=== PATIENT | male | born 1950 | race Caucasian/White ===

== ENCOUNTER 2016-10-06 22:35 | Emergency (ER) | payer MEDICARE, BC ==
[2016-10-06] MEDS ORDERED: Glucagon,Human Recombinant 1 MG Vial IVPUSH ONE (23:14)
[2016-10-06] MEDS ORDERED: Ondansetron 4 MG/2 ML SDV IV ONE (23:15)
[2016-10-06] MEDS ORDERED: Famotidine 20 MG/2 ML SDV IVPUSH ONE (23:26)
[2016-10-06 23:50] LABS: CHLORIDE,CL 109 mmol/L (101-111); SODIUM,NA 137 mmol/L (135-145)
[2016-10-07] MEDS ORDERED: fentaNYL 100 MCG/2 ML SDV IVPUSH ONE ×2 (00:07→00:32)
[2016-10-07 00:32] VITALS: BP 129/76
--- NOTE | 2016-10-07 00:51 | EDM.PDOC ---
ED HPI GENERAL MEDICAL PROBLEM - General Chief Complaint: Abdominal Pain Stated Complaint: CHOKING? Time Seen by Provider: 10/06/16 23:10 Source of Information: Reports: Patient History Limitations: Reports: No Limitations - History of Present Illness INITIAL COMMENTS - FREE TEXT/NARRATIVE: c/o abdominal pain after eating steak 4 hours ago, feels like choking , Gagging since. Does not recall feeling like piece of steak stuck. pain in LUQ. states would feel better if could throw up. Onset: Today Location: Reports: Abdomen Associated Symptoms: Reports: Nausea/Vomiting Middle Abdominal Pain Score (Numeric/FACES): 9 - Related Data Allergies Allergy/AdvReac Type Severity Reaction Status Date / Time codeine Allergy Nausea and Verified 10/06/16 23:41 Vomiting Home Meds: Home Meds Pantoprazole Sodium [Protonix] 40 mg PO DAILY 10/15/13 [History] Gemfibrozil [Gemfibrozil] 1 tab PO BID 05/03/14 [History] Metoprolol Succinate 50 mg PO DAILY 08/13/15 [History] Past Medical History HEENT History: Reports: Hard of Hearing Cardiovascular History: Reports: Heart Murmur, High Cholesterol, Hypertension Gastrointestinal History: Reports: GERD Genitourinary History: Reports: Other (See Below) Other Genitourinary History: prostate ca, erectile dysfunction Musculoskeletal History: Reports: Arthritis Psychiatric History: Reports: Anxiety, Panic Attack Endocrine/Metabolic History: Reports: Obesity/BMI 30+ Oncologic (Cancer) History: Reports: Other (See Below) Other Oncologic History: prostate - Past Surgical History GI Surgical History: Reports: Hernia Repair/Other Male Surgical History: Reports: Prostate Biopsy Social & Family History - Tobacco Use Smoking Status *Q: Never Smoker Second Hand Smoke Exposure: No - Caffeine Use Caffeine Use: Reports: Soda - Alcohol Use Days Per Week of Alcohol Use: 7 Number of Drinks Per Day: 4 Total Drinks Per Week: 28 - Recreational Drug Use Recreational Drug Use: No - Living Situation & Occupation Living situation: Reports: , with Family Occupation: Employed ED ROS GENERAL - Review of Systems Review Of Systems: See Below Constitutional: Reports: No Symptoms HEENT: Reports: No Symptoms Respiratory: Reports: Shortness of Breath Cardiovascular: Denies: Chest Pain, Lightheadedness GI/Abdominal: Reports: Abdominal Pain (LUQ), Nausea, Vomiting : Reports: No Symptoms Musculoskeletal: Reports: No Symptoms Skin: Reports: No Symptoms Neurological: Reports: No Symptoms ED EXAM, GI/ABD - Physical Exam Exam: See Below Exam Limited By: No Limitations General Appearance: Alert, Anxious, Moderate Distress Eyes: Bilateral: EOMI Ears: Normal External Exam Nose: Normal Inspection Throat/Mouth: Normal Inspection Head: Atraumatic, Normocephalic Neck: Normal Inspection Respiratory/Chest: No Respiratory Distress, Lungs Clear Cardiovascular: Irregularly Irregular GI/Abdominal: Hypoactive Bowel Sounds, Distention. No: Guarding Extremities: Normal Inspection, Normal Range of Motion Neurological: Alert, Oriented, Normal Cognition Psychiatric: Anxious Skin Exam: Warm, Dry, Intact, Normal Color Course - Vital Signs Last Recorded V/S: Last Vital Signs Temp 98.8 F 10/07/16 00:32 Pulse 128 H 10/07/16 00:32 Resp 16 10/07/16 00:32 BP 129/76 10/07/16 00:32 Pulse Ox 98 10/07/16 00:32 - Orders/Labs/Meds Orders: Active Orders 24 hr Category Date Time Status EKG 12 Lead [EKG Documentation Completion] [RC] URGENT Care 10/06/16 23:25 Active Labs: Laboratory Tests 10/06/16 10/06/16 10/07/16 Range/Units 23:24 23:24 00:30 WBC 9.2 (5.0-10.0) 10^3/uL RBC 4.80 (4.6-6.2) 10^6/uL Hgb 14.7 (14.0-18.0) g/dL Hct 43.4 (40.0-54.0) % MCV 90.4 (80-100) fL MCH 30.6 (27.0-34.0) pg MCHC 33.9 (33.0-35.0) g/dL Plt Count 189 (150-450) 10^3/uL Neut % (Auto) 84.1 H (42.2-75.2) % Lymph % (Auto) 8.7 L (20.5-50.1) % [place] % (Auto) 5.9 (2-8) % Eos % (Auto) 0.8 L (1.0-3.0) % Baso % (Auto) 0.5 (0.0-1.0) % Sodium 137 (135-145) mmol/L Potassium 3.6 (3.6-5.0) mmol/L Chloride 109 (101-111) mmol/L Carbon Dioxide 22.0 (21.0-31.0) mmol/L Anion Gap 9.6 BUN 18 (7-18) mg/dL Creatinine 1.4 H (0.6-1.3) mg/dL Est Cr Clr Drug Dosing 56.97 mL/min Estimated GFR (MDRD) 51 BUN/Creatinine Ratio 12.85 Glucose 119 H (74-105) mg/dL Calcium 9.2 (8.4-10.2) mg/dl Total Bilirubin 0.7 (0.2-1.0) mg/dL AST 30 (10-42) IU/L ALT 28 (10-60) IU/L Alkaline Phosphatase 51 (42-121) IU/L Troponin I < 0.02 (0.00-0.02) ng/ml Total Protein 7.6 (6.7-8.2) g/dl Albumin 4.3 (3.2-5.5) g/dl Globulin 3.3 Albumin/Globulin Ratio 1.30 Amylase 68 (28-100) U/L Lipase 32 (22-51) U/L Urine Color Yellow (YELLOW) Urine Appearance Clear (CLEAR) Urine pH 5.5 (5.0-9.0) Ur Specific [place] 1.025 (1.005-1.030) Urine Protein Negative (NEGATIVE) Urine Glucose (UA) Negative (NEGATIVE) Urine Ketones Negative (NEGATIVE) Urine Occult Blood Negative (NEGATIVE) Urine Nitrite Negative (NEGATIVE) Urine Bilirubin Negative (NEGATIVE) Urine Urobilinogen 0.2 (0.2-1.0) mg/dL Ur Leukocyte Esterase Negative (NEGATIVE) Urine RBC 0-5 /HPF Urine WBC 0-5 (0-5/HPF) /HPF Ur Epithelial Cells Occasional /HPF Urine Bacteria Few (0-FEW/HPF) /HPF Urine Mucus Moderate H /LPF Meds: Medications Discontinued Medications Generic Name Dose Route Start Last Admin Trade Name Freq PRN Reason Stop Dose Admin Famotidine 20 mg 10/06/16 23:26 10/06/16 23:36 Pepcid IVPUSH 10/06/16 23:27 20 mg ONETIME ONE Administration Fentanyl 25 mcg 10/07/16 00:07 10/07/16 00:25 Sublimaze IVPUSH 10/07/16 00:08 25 mcg ONETIME ONE Administration Fentanyl 25 mcg 10/07/16 00:32 10/07/16 01:10 Sublimaze IVPUSH 10/07/16 00:33 25 mcg ONETIME ONE Administration Glucagon 1 mg 10/06/16 23:14 10/06/16 23:32 Glucagen IVPUSH 10/06/16 23:15 1 mg ONETIME ONE Administration Ondansetron HCl 4 mg 10/06/16 23:15 10/06/16 23:31 Zofran IV 10/06/16 23:16 4 mg ONETIME ONE Administration - Re-Assessments/Exams Free Text/Narrative Re-Assessment/Exam: 10/07/16 01:18 Decrease in gagging and vomiting with zofran and glucagon. Pain continued, Fentanyl IV with decrease in pain 4/10 , repeated. TC consult Dr. An accepting of patient in transfer to [facility]. Ct demonstrating possible esophageal tear with trace fluid in posterior mediastinum Tx via LRAS stable condition 10/07/16 05:08 Departure - Departure Time of Disposition: 01:21 Disposition: DC/Tfer to Acute Hospital 02 Condition: undetermined Clinical Impression: Abdominal pain Qualifiers: Abdominal location: left upper quadrant Qualified Code(s): R10.12 - Left upper quadrant pain Esophageal tear Qualifiers: Encounter type: initial encounter Qualified Code(s): S11.21XA - Laceration without foreign body of pharynx and cervical esophagus, initial encounter Vomiting Qualifiers: Vomiting type: unspecified Vomiting Intractability: unspecified Nausea presence : unspecified Qualified Code(s): R11.10 - Vomiting, unspecified - Discharge Information Forms: ED Department Discharge - My Orders Last 24 Hours: My Active Orders 10/06/16 23:25 EKG 12 Lead [EKG Documentation Completion] [RC] URGENT - Assessment/Plan Last 24 Hours: My Active Orders 10/06/16 23:25 EKG 12 Lead [EKG Documentation Completion] [RC] URGENT
--- NOTE | 2016-10-09 14:00 | EKG ---
10/06/2016 LEANDRA MOSES I reviewed the EKG and agree with the machine's reading. [facility] /[id number]
== END 2016-10-07 01:50 ==
LOC: DL.ED 22:35
DX: S11.21XA Laceration without foreign body of pharynx and cervical esophagus, initial encounter (principal); R01.1 Cardiac murmur, unspecified; E78.00 Pure hypercholesterolemia, unspecified; I10 Essential (primary) hypertension; K21.9 Gastro-esophageal reflux disease without esophagitis; M19.90 Unspecified osteoarthritis, unspecified site; F41.9 Anxiety disorder, unspecified; E66.9 Obesity, unspecified; Z88.5 Allergy status to narcotic agent; X58.XXXA Exposure to other specified factors, initial encounter
CPT/HCPCS: 36415; 74176; 80053; 81001; 82150; 83690; 84484; 85025; 93005; 93010; 96374; 96375; 96376; 99285; J1610; J2405; J3010; S0028

== ENCOUNTER 2017-07-03 02:33 | Emergency (ER) | payer MEDICARE, BC ==
[2017-07-03] MEDS ORDERED: Acetaminophen 325 MG Tab PO ONE (02:47)
[2017-07-03 03:24] LABS: CHLORIDE,CL 103 mmol/L (101-111); SODIUM,NA 133 mmol/L (135-145)
--- NOTE | 2017-07-03 03:44 | EDM.PDOC ---
ED HPI GENERAL MEDICAL PROBLEM - General Chief Complaint: General Stated Complaint: HURTS ALL OVER [id number] Time Seen by Provider: 07/03/17 03:00 Source of Information: Reports: Patient History Limitations: Reports: No Limitations - History of Present Illness Treatments BEVERAGE MANAGER: Reports: Acetaminophen Generalized Pain Score (Numeric/FACES): 7 - Related Data Allergies Allergy/AdvReac Type Severity Reaction Status Date / Time codeine Allergy Nausea and Verified 07/03/17 02:43 Vomiting Home Meds: Home Meds Pantoprazole Sodium [Protonix] 40 mg PO DAILY 10/15/13 [History] Gemfibrozil [Gemfibrozil] 1 tab PO BID 05/03/14 [History] Metoprolol Succinate 50 mg PO DAILY 08/13/15 [History] Past Medical History HEENT History: Reports: Hard of Hearing Cardiovascular History: Reports: Heart Murmur, High Cholesterol, Hypertension Gastrointestinal History: Reports: GERD Genitourinary History: Reports: Other (See Below) Other Genitourinary History: prostate ca, erectile dysfunction Musculoskeletal History: Reports: Arthritis Psychiatric History: Reports: Anxiety, Panic Attack Endocrine/Metabolic History: Reports: Obesity/BMI 30+ Oncologic (Cancer) History: Reports: Other (See Below) Other Oncologic History: prostate - Past Surgical History GI Surgical History: Reports: Hernia Repair/Other Male Surgical History: Reports: Prostate Biopsy Social & Family History - Tobacco Use Smoking Status *Q: Never Smoker Second Hand Smoke Exposure: No - Caffeine Use Caffeine Use: Reports: Soda - Alcohol Use Days Per Week of Alcohol Use: 4 Number of Drinks Per Day: 3 Total Drinks Per Week: 12 - Recreational Drug Use Recreational Drug Use: No - Living Situation & Occupation Living situation: Reports: , with Family Occupation: Employed ED ROS GENERAL - Review of Systems Review Of Systems: See Below Constitutional: Reports: Fever, Decreased Appetite HEENT: Reports: No Symptoms Respiratory: Reports: No Symptoms Endocrine: Reports: No Symptoms GI/Abdominal: Reports: No Symptoms Musculoskeletal: Reports: Joint Pain, Muscle Pain Skin: Reports: No Symptoms Neurological: Reports: No Symptoms Psychiatric: Reports: No Symptoms Hematologic/Lymphatic: Reports: No Symptoms ED EXAM, GENERAL - Physical Exam Exam: See Below Exam Limited By: No Limitations General Appearance: Alert, Mild Distress Eye Exam: Bilateral Eye: EOMI Ears: Normal External Exam, Normal TMs Nose: Normal Inspection Throat/Mouth: Normal Inspection Head: Atraumatic, Normocephalic Neck: No: Lymphadenopathy (L), Lymphadenopathy (R) Respiratory/Chest: No Respiratory Distress, Lungs Clear, Other (ocassional dry cough) Cardiovascular: Regular Rate, Rhythm GI/Abdominal: Normal Bowel Sounds, Soft Back Exam: Normal Inspection Extremities: Normal Inspection, Normal Range of Motion Neurological: Alert, Oriented, Normal Cognition Psychiatric: Normal Affect, Normal Mood Skin Exam: Warm, Dry, Intact, Normal Color, No Rash Course - Vital Signs Last Recorded V/S: Last Vital Signs Temp 100.6 F 07/03/17 04:36 Pulse 73 07/03/17 04:36 Resp 16 07/03/17 04:36 BP 98/45 L 07/03/17 04:36 Pulse Ox 98 07/03/17 04:36 - Orders/Labs/Meds Orders: Active Orders 24 hr Category Date Time Status CULTURE BLOOD [BC] Stat Lab 07/03/17 02:55 Received CULTURE BLOOD [BC] Stat Lab 07/03/17 02:58 Received Blood Culture x2 Reflex Set [OM.PC] Stat Oth 07/03/17 02:46 Ordered Labs: Laboratory Tests 07/03/17 07/03/17 07/03/17 Range/Units 02:55 02:55 02:55 WBC 3.8 L (5.0-10.0) 10^3/uL RBC 4.31 L (4.6-6.2) 10^6/uL Hgb 13.1 L D (14.0-18.0) g/dL Hct 38.1 L (40.0-54.0) % MCV 88.4 (80-100) fL MCH 30.4 (27.0-34.0) pg MCHC 34.4 (33.0-35.0) g/dL Plt Count 177 (150-450) 10^3/uL Neut % (Auto) 64.7 (42.2-75.2) % Lymph % (Auto) 24.7 (20.5-50.1) % [place] % (Auto) 9.8 H (2-8) % Eos % (Auto) 0.3 L (1.0-3.0) % Baso % (Auto) 0.5 (0.0-1.0) % Sodium 133 L (135-145) mmol/L Potassium 3.8 (3.6-5.0) mmol/L Chloride 103 (101-111) mmol/L Carbon Dioxide 19.0 L (21.0-31.0) mmol/L Anion Gap 14.8 BUN 12 (7-18) mg/dL Creatinine 1.2 (0.6-1.3) mg/dL Est Cr Clr Drug Dosing 67.51 mL/min Estimated GFR (MDRD) > 60 BUN/Creatinine Ratio 10.00 Glucose 110 H (74-105) mg/dL Lactic Acid 1.5 (0.5-2.2) mmol/L Calcium 8.9 (8.4-10.2) mg/dl Total Bilirubin 0.4 (0.2-1.0) mg/dL AST 40 (10-42) IU/L ALT 31 (10-60) IU/L Alkaline Phosphatase 46 (42-121) IU/L Total Protein 7.5 (6.7-8.2) g/dl Albumin 3.6 (3.2-5.5) g/dl Globulin 3.9 Albumin/Globulin Ratio 0.92 Urine Color (YELLOW) Urine Appearance (CLEAR) Urine pH (5.0-9.0) Ur Specific [place] (1.005-1.030) Urine Protein (NEGATIVE) Urine Glucose (UA) (NEGATIVE) Urine Ketones (NEGATIVE) Urine Occult Blood (NEGATIVE) Urine Nitrite (NEGATIVE) Urine Bilirubin (NEGATIVE) Urine Urobilinogen (0.2-1.0) mg/dL Ur Leukocyte Esterase (NEGATIVE) Urine RBC /HPF Urine WBC (0-5/HPF) /HPF Ur Epithelial Cells /HPF Urine Bacteria (0-FEW/HPF) /HPF Urine Opiates Screen (NEGATIVE) Ur Oxycodone Screen (NEGATIVE) Urine Methadone Screen (NEGATIVE) Ur Barbiturates Screen (NEGATIVE) U Tricyclic Antidepress (NEGATIVE) Ur Phencyclidine Scrn (NEGATIVE) Ur Amphetamine Screen (NEGATIVE) U Methamphetamines Scrn (NEGATIVE) Urine MDMA Screen (NEGATIVE) U Benzodiazepines Scrn (NEGATIVE) Urine Cocaine Screen (NEGATIVE) U Marijuana (THC) Screen (NEGATIVE) 07/03/17 07/03/17 Range/Units 04:14 04:14 WBC (5.0-10.0) 10^3/uL RBC (4.6-6.2) 10^6/uL Hgb (14.0-18.0) g/dL Hct (40.0-54.0) % MCV (80-100) fL MCH (27.0-34.0) pg MCHC (33.0-35.0) g/dL Plt Count (150-450) 10^3/uL Neut % (Auto) (42.2-75.2) % Lymph % (Auto) (20.5-50.1) % [place] % (Auto) (2-8) % Eos % (Auto) (1.0-3.0) % Baso % (Auto) (0.0-1.0) % Sodium (135-145) mmol/L Potassium (3.6-5.0) mmol/L Chloride (101-111) mmol/L Carbon Dioxide (21.0-31.0) mmol/L Anion Gap BUN (7-18) mg/dL Creatinine (0.6-1.3) mg/dL Est Cr Clr Drug Dosing mL/min Estimated GFR (MDRD) BUN/Creatinine Ratio Glucose (74-105) mg/dL Lactic Acid (0.5-2.2) mmol/L Calcium (8.4-10.2) mg/dl Total Bilirubin (0.2-1.0) mg/dL AST (10-42) IU/L ALT (10-60) IU/L Alkaline Phosphatase (42-121) IU/L Total Protein (6.7-8.2) g/dl Albumin (3.2-5.5) g/dl Globulin Albumin/Globulin Ratio Urine Color Yellow (YELLOW) Urine Appearance Clear (CLEAR) Urine pH 5.5 (5.0-9.0) Ur Specific [place] 1.020 (1.005-1.030) Urine Protein Trace H (NEGATIVE) Urine Glucose (UA) Negative (NEGATIVE) Urine Ketones Negative (NEGATIVE) Urine Occult Blood Negative (NEGATIVE) Urine Nitrite Negative (NEGATIVE) Urine Bilirubin Negative (NEGATIVE) Urine Urobilinogen 0.2 (0.2-1.0) mg/dL Ur Leukocyte Esterase Negative (NEGATIVE) Urine RBC 0-5 /HPF Urine WBC 0-5 (0-5/HPF) /HPF Ur Epithelial Cells Occasional /HPF Urine Bacteria Few (0-FEW/HPF) /HPF Urine Opiates Screen Negative (NEGATIVE) Ur Oxycodone Screen Negative (NEGATIVE) Urine Methadone Screen Negative (NEGATIVE) Ur Barbiturates Screen Negative (NEGATIVE) U Tricyclic Antidepress Negative (NEGATIVE) Ur Phencyclidine Scrn Negative (NEGATIVE) Ur Amphetamine Screen Negative (NEGATIVE) U Methamphetamines Scrn Negative (NEGATIVE) Urine MDMA Screen Negative (NEGATIVE) U Benzodiazepines Scrn Negative (NEGATIVE) Urine Cocaine Screen Negative (NEGATIVE) U Marijuana (THC) Screen Negative (NEGATIVE) Meds: Medications Discontinued Medications Generic Name Dose Route Start Last Admin Trade Name Pernell PRN Reason Stop Dose Admin Acetaminophen 650 mg 07/03/17 02:47 07/03/17 02:59 Tylenol PO 07/03/17 02:48 650 mg NOW ONE Administration Sodium Chloride 1,000 mls @ 999 mls/hr 07/03/17 03:45 07/03/17 03:52 Normal Saline IV 07/03/17 04:45 999 mls/hr .BOLUS ONE Administration Ketorolac Tromethamine 30 mg 07/03/17 03:47 07/03/17 03:54 Toradol IVPUSH 07/03/17 03:48 30 mg ONETIME ONE Administration - Radiology Interpretation Free Text/Narrative:: CXR negative Departure - Departure Time of Disposition: 04:40 Disposition: Home, Self-Care 01 Condition: Good Clinical Impression: Myalgia, Acute viral syndrome - Discharge Information Instructions: Nausea, Adult, [id number] Forms: ED Department Discharge Additional Instructions: light diet push fluids alternate tylenol 650mg with ibuprofen 600mg every 4 hours as needed for discomfort rest clinic follow up if not improving in 24 hours - My Orders Last 24 Hours: My Active Orders 07/03/17 02:46 Blood Culture x2 Reflex Set [OM.PC] Stat 07/03/17 02:55 CULTURE BLOOD [BC] Stat 07/03/17 02:58 CULTURE BLOOD [BC] Stat - Assessment/Plan Last 24 Hours: My Active Orders 07/03/17 02:46 Blood Culture x2 Reflex Set [OM.PC] Stat 07/03/17 02:55 CULTURE BLOOD [BC] Stat 07/03/17 02:58 CULTURE BLOOD [BC] Stat
[2017-07-03] MEDS ORDERED: Sodium Chloride 0.9% 1,000 ML IV ONE (03:45)
[2017-07-03] MEDS ORDERED: Ketorolac 30 MG/ML SDV IVPUSH ONE (03:47)
[2017-07-03 04:54] VITALS: BP 127/63
== END 2017-07-03 04:58 | disposition home or self-care (01) ==
LOC: DL.ED 02:33
DX: M79.1 Myalgia (principal); B34.9 Viral infection, unspecified; E78.00 Pure hypercholesterolemia, unspecified; I10 Essential (primary) hypertension; Z88.5 Allergy status to narcotic agent; Z79.899 Other long term (current) drug therapy
CPT/HCPCS: 36415; 71045; 80053; 80305; 81001; 83605; 85025; 87040; 87804; 96374; 96375; 99283; A9270; J1885; J7030

== ENCOUNTER 2017-10-10 04:29 | Emergency (ER) | payer MEDICARE, BC ==
[2017-10-10 04:35] VITALS: BP 159/73
--- NOTE | 2017-10-10 05:11 | EDM.PDOC ---
ED HPI GENERAL MEDICAL PROBLEM - General Chief Complaint: General Stated Complaint: SICK [id number] Time Seen by Provider: 10/10/17 05:00 Source of Information: Reports: Patient History Limitations: Reports: No Limitations - History of Present Illness INITIAL COMMENTS - FREE TEXT/NARRATIVE: Nose bleed approximatley 1 minute that stopped , [place] dizzy after, so came to ER , Feels fine now. Out mowing in dust yesterday. Not on any blood thiner, Denies hx of nose bleeds No recent URI. Generalized Pain Score (Numeric/FACES): 8 - Related Data Allergies Allergy/AdvReac Type Severity Reaction Status Date / Time codeine Allergy Nausea and Verified 10/10/17 04:35 Vomiting Home Meds: Home Meds Pantoprazole Sodium [Protonix] 40 mg PO DAILY 10/15/13 [History] Gemfibrozil 1 tab PO BID 05/03/14 [History] Metoprolol Succinate 50 mg PO DAILY 08/13/15 [History] Past Medical History HEENT History: Reports: Hard of Hearing Cardiovascular History: Reports: Heart Murmur, High Cholesterol, Hypertension Gastrointestinal History: Reports: GERD Genitourinary History: Reports: Other (See Below) Other Genitourinary History: prostate ca, erectile dysfunction Musculoskeletal History: Reports: Arthritis Psychiatric History: Reports: Anxiety, Panic Attack Endocrine/Metabolic History: Reports: Obesity/BMI 30+ Oncologic (Cancer) History: Reports: Prostate Other Oncologic History: prostate - Past Surgical History GI Surgical History: Reports: Hernia Repair/Other Male Surgical History: Reports: Prostate Biopsy Social & Family History - Tobacco Use Smoking Status *Q: Never Smoker Second Hand Smoke Exposure: No - Caffeine Use Caffeine Use: Reports: Soda - Recreational Drug Use Recreational Drug Use: No - Living Situation & Occupation Living situation: Reports: , with Family Occupation: Employed ED ROS GENERAL - Review of Systems Review Of Systems: ROS reveals no pertinent complaints other than HPI. ED EXAM, GENERAL - Physical Exam Exam: See Below Exam Limited By: No Limitations General Appearance: Alert, No Apparent Distress, Anxious Ears: Normal External Exam, Normal TMs Nose: Other (scant dried blood to left anterior nare) Throat/Mouth: Normal Inspection Head: Atraumatic, Normocephalic Neck: Normal Inspection Respiratory/Chest: No Respiratory Distress, Lungs Clear, Normal Breath Sounds Cardiovascular: Normal Peripheral Pulses, Regular Rate, Rhythm GI/Abdominal: Normal Bowel Sounds Extremities: Normal Inspection Neurological: Alert, Oriented, Normal Cognition Psychiatric: Anxious Skin Exam: Warm, Dry, Intact, Normal Color Course - Vital Signs Last Recorded V/S: Last Vital Signs Temp 97.3 F 10/10/17 04:31 Pulse 71 10/10/17 04:31 Resp 18 10/10/17 04:31 BP 159/73 H 10/10/17 04:31 Pulse Ox 99 10/10/17 04:31 Departure - Departure Time of Disposition: 05:08 Disposition: Home, Self-Care 01 Condition: Good Clinical Impression: Anterior epistaxis - Discharge Information Instructions: Nosebleed, Adult, [id number] Forms: ED Department Discharge Additional Instructions: if recurrent nose bleed apply pressure to nasal bridge, follow up if bleeding continues after 5 minutes light activity today humidification at night
== END 2017-10-10 05:12 | disposition home or self-care (01) ==
LOC: DL.ED 04:29
DX: R04.0 Epistaxis (principal); I10 Essential (primary) hypertension; E66.9 Obesity, unspecified; K21.9 Gastro-esophageal reflux disease without esophagitis; Z79.899 Other long term (current) drug therapy; Z88.5 Allergy status to narcotic agent
CPT/HCPCS: 99282; 99283

== ENCOUNTER 2018-09-15 20:15 | Emergency (ER) | payer MEDICARE, BC ==
[2018-09-15] MEDS ORDERED: Acetaminophen 325 MG Tab PO ONE (21:20)
[2018-09-15] MEDS ORDERED: Sodium Chloride 0.9% 1,000 ML IV ONE (21:22)
[2018-09-15] MEDS ORDERED: fentaNYL 100 MCG/2 ML SDV IVPUSH ONE (21:24)
[2018-09-15 21:39] LABS: ANION GAP 13.6; CHLORIDE,CL 101 mmol/L (101-111); SODIUM,NA 131 mmol/L (135-145)
[2018-09-15 22:07] VITALS: BP 131/71; PULSE 73
--- NOTE | 2018-09-15 23:25 | EDM.PDOC ---
"ED HPI GENERAL MEDICAL PROBLEM - General Chief Complaint: General Stated Complaint: PAIN Time Seen by Provider: 09/15/18 20:25 Source of Information: Reports: Patient History Limitations: Reports: No Limitations - History of Present Illness INITIAL COMMENTS - FREE TEXT/NARRATIVE: ED with c/o headache, generalized arthritis, urinary incontinence and diarrhea. Has had diarrhea and urinary symptoms since prostate surgery in 2004. Occasional cough, no nausea or vomiting. No abdominal pain, joints and back hurt. Denies taking anything for pain or fever. Admits daily ETOH Headache same type as previous headaches across top of head. from ear to ear but not had for few years. Headache Pain Score (Numeric/FACES): 6 - Related Data Allergies Allergy/AdvReac Type Severity Reaction Status Date / Time codeine Allergy Nausea and Verified 09/15/18 20:18 Vomiting Home Meds: Home Meds Pantoprazole Sodium [Protonix] 40 mg PO DAILY 10/15/13 [History] Gemfibrozil 1 tab PO BID 05/03/14 [History] Metoprolol Succinate 50 mg PO DAILY 08/13/15 [History] Past Medical History HEENT History: Reports: Hard of Hearing Cardiovascular History: Reports: Heart Murmur, High Cholesterol, Hypertension Gastrointestinal History: Reports: GERD Genitourinary History: Reports: Other (See Below) Other Genitourinary History: prostate ca, erectile dysfunction Musculoskeletal History: Reports: Arthritis Psychiatric History: Reports: Anxiety, Panic Attack Endocrine/Metabolic History: Reports: Obesity/BMI 30+ Oncologic (Cancer) History: Reports: Prostate Other Oncologic History: prostate - Past Surgical History GI Surgical History: Reports: Hernia Repair/Other Male Surgical History: Reports: Prostate Biopsy Social & Family History - Tobacco Use Smoking Status *Q: Never Smoker - Caffeine Use Caffeine Use: Reports: Soda - Alcohol Use Days Per Week of Alcohol Use: 7 Number of Drinks Per Day: 6 Total Drinks Per Week: 42 - Recreational Drug Use Recreational Drug Use: No - Living Situation & Occupation Living situation: Reports: , with Family Occupation: Employed ED ROS GENERAL - Review of Systems Review Of Systems: ROS reveals no pertinent complaints other than HPI. Constitutional: Reports: Fever. Denies: Decreased Appetite HEENT: Reports: Glasses Respiratory: Reports: No Symptoms Cardiovascular: Reports: No Symptoms GI/Abdominal: Reports: No Symptoms : Reports: Incontinence (x1). Denies: Dysuria, Flank Pain, Frequency Musculoskeletal: Reports: Joint Pain (general) Skin: Reports: No Symptoms Neurological: Reports: Headache ED EXAM, GENERAL - Physical Exam Exam: See Below Exam Limited By: No Limitations General Appearance: Alert, Anxious, Mild Distress Eye Exam: Bilateral Eye: EOMI, Normal Inspection, PERRL Ears: Normal External Exam, Normal TMs Nose: Normal Inspection Throat/Mouth: Normal Inspection Head: Atraumatic, Normocephalic Neck: Normal Inspection, Full Range of Motion Respiratory/Chest: No Respiratory Distress, Lungs Clear, Other (rare dry cough) Cardiovascular: Normal Peripheral Pulses, Regular Rate, Rhythm GI/Abdominal: Normal Bowel Sounds, Soft Back Exam: Full Range of Motion Extremities: Normal Inspection Neurological: Alert, Oriented, Normal Cognition, No Motor/Sensory Deficits Psychiatric: Anxious Skin Exam: Warm, Dry, Intact, Normal Color Course - Vital Signs Last Recorded V/S: Last Vital Signs Temp 98.6 F 09/15/18 22:52 Pulse 73 09/15/18 22:06 Resp 16 09/15/18 22:06 BP 131/71 09/15/18 22:06 Pulse Ox 97 09/15/18 22:06 - Orders/Labs/Meds Labs: Laboratory Tests 09/15/18 09/15/18 09/15/18 Range/Units 20:17 20:55 20:55 WBC 4.2 L (5.0-10.0) 10^3/uL RBC 4.48 L (4.6-6.2) 10^6/uL Hgb 14.2 (14.0-18.0) g/dL Hct 40.0 (40.0-54.0) % MCV 89.3 (80-100) fL MCH 31.7 (27.0-34.0) pg MCHC 35.5 H (33.0-35.0) g/dL Plt Count 151 (150-450) 10^3/uL Neut % (Auto) 67.6 (42.2-75.2) % Lymph % (Auto) 21.8 (20.5-50.1) % [place] % (Auto) 9.2 H (2-8) % Eos % (Auto) 0.9 L (1.0-3.0) % Baso % (Auto) 0.5 (0.0-1.0) % Sodium 131 L (135-145) mmol/L Potassium 3.6 (3.6-5.0) mmol/L Chloride 101 (101-111) mmol/L Carbon Dioxide 20.0 L (21.0-31.0) mmol/L Anion Gap 13.6 BUN 12 (7-18) mg/dL Creatinine 1.3 (0.6-1.3) mg/dL Est Cr Clr Drug Dosing 59.69 mL/min Estimated GFR (MDRD) 55 BUN/Creatinine Ratio 9.23 Glucose 115 H (74-105) mg/dL Lactic Acid (0.5-2.2) mmol/L Calcium 8.3 L (8.4-10.2) mg/dl Total Bilirubin 1.0 (0.2-1.0) mg/dL AST 23 (10-42) IU/L ALT 16 (10-60) IU/L Alkaline Phosphatase 54 (42-121) IU/L C-Reactive Protein (0.0-1.3) mg/dL Total Protein 7.1 (6.7-8.2) g/dl Albumin 3.3 (3.2-5.5) g/dl Globulin 3.8 Albumin/Globulin Ratio 0.87 Urine Color Yellow (YELLOW) Urine Appearance Clear (CLEAR) Urine pH 7.5 (5.0-9.0) Ur Specific [place] 1.020 (1.005-1.030) Urine Protein 30 H (NEGATIVE) Urine Glucose (UA) Negative (NEGATIVE) Urine Ketones Trace H (NEGATIVE) Urine Occult Blood Negative (NEGATIVE) Urine Nitrite Negative (NEGATIVE) Urine Bilirubin Negative (NEGATIVE) Urine Urobilinogen 1.0 (0.2-1.0) mg/dL Ur Leukocyte Esterase Negative (NEGATIVE) Urine RBC 0-5 /HPF Urine WBC 0-5 (0-5/HPF) /HPF Ur Epithelial Cells Rare /HPF Urine Bacteria Not seen (0-FEW/HPF) /HPF Ethyl Alcohol < 5 mg/dL 09/15/18 09/15/18 Range/Units 20:55 20:55 WBC (5.0-10.0) 10^3/uL RBC (4.6-6.2) 10^6/uL Hgb (14.0-18.0) g/dL Hct (40.0-54.0) % MCV (80-100) fL MCH (27.0-34.0) pg MCHC (33.0-35.0) g/dL Plt Count (150-450) 10^3/uL Neut % (Auto) (42.2-75.2) % Lymph % (Auto) (20.5-50.1) % [place] % (Auto) (2-8) % Eos % (Auto) (1.0-3.0) % Baso % (Auto) (0.0-1.0) % Sodium (135-145) mmol/L Potassium (3.6-5.0) mmol/L Chloride (101-111) mmol/L Carbon Dioxide (21.0-31.0) mmol/L Anion Gap BUN (7-18) mg/dL Creatinine (0.6-1.3) mg/dL Est Cr Clr Drug Dosing mL/min Estimated GFR (MDRD) BUN/Creatinine Ratio Glucose (74-105) mg/dL Lactic Acid 1.1 (0.5-2.2) mmol/L Calcium (8.4-10.2) mg/dl Total Bilirubin (0.2-1.0) mg/dL AST (10-42) IU/L ALT (10-60) IU/L Alkaline Phosphatase (42-121) IU/L C-Reactive Protein 3.4 H (0.0-1.3) mg/dL Total Protein (6.7-8.2) g/dl Albumin (3.2-5.5) g/dl Globulin Albumin/Globulin Ratio Urine Color (YELLOW) Urine Appearance (CLEAR) Urine pH (5.0-9.0) Ur Specific [place] (1.005-1.030) Urine Protein (NEGATIVE) Urine Glucose (UA) (NEGATIVE) Urine Ketones (NEGATIVE) Urine Occult Blood (NEGATIVE) Urine Nitrite (NEGATIVE) Urine Bilirubin (NEGATIVE) Urine Urobilinogen (0.2-1.0) mg/dL Ur Leukocyte Esterase (NEGATIVE) Urine RBC /HPF Urine WBC (0-5/HPF) /HPF Ur Epithelial Cells /HPF Urine Bacteria (0-FEW/HPF) /HPF Ethyl Alcohol mg/dL Meds: Medications Discontinued Medications Generic Name Dose Route Start Last Admin Trade Name Freq PRN Reason Stop Dose Admin Acetaminophen 650 mg 09/15/18 21:20 09/15/18 21:25 Tylenol PO 09/15/18 21:21 650 mg NOW ONE Administration Fentanyl 25 mcg 09/15/18 21:24 09/15/18 21:50 Sublimaze IVPUSH 09/15/18 21:25 25 mcg ONETIME ONE Administration Sodium Chloride 1,000 mls @ 250 mls/hr 09/15/18 21:22 09/15/18 21:47 Normal Saline IV 09/16/18 01:21 250 mls/hr .BOLUS ONE Administration - Radiology Interpretation Free Text/Narrative:: Name: LEANDRA ERNST Age: 68Years M Date: 09/15/2018 SSN: -- : 1950 Study: XR CHEST 2 VIEWS FRONTAL & LAT Requesting Physician: MARLENY GORE Images: 2 Addl Studies: Provided Clinical History: Contrast: Contrast Medium: Contrast Amount: Contrast Method: CONFIDENTIALITY STATEMENT This report is intended only for use by the referring physician, and only in accordance with law. If you received this in error, call [phone]. Page 1 of 1 EXAM: XR Chest, 2 Views EXAM DATE/TIME: 09/15/2018 10:32 PM CLINICAL HISTORY: 68 years old, male; Fever. TECHNIQUE: Imaging protocol: XR of the chest, 2 views. COMPARISON: CR Chest 1V Frontal 07/03/2017 3:22 AM FINDINGS: Lungs are clear. No evidence of pneumothorax or pleural effusion. Cardiomediastinal silhouette is within normal limits. Osseous structures appear intact. No significant change relative to comparison examination. IMPRESSION: No acute disease. Thank you for allowing us to participate in the care of your patient. Dictated and Authenticated by: Nick Sandra MD 09/15/2018 11:01 PM Central Time ([place] & [place] Name: LEANDRA ERNST Age: 68Years M Date: 09/15/2018 SSN: -- : 1950 Study: CT HEAD WO Requesting Physician: MARLENY GORE Images: 153 Addl Studies: Provided Clinical History: Contrast: Without Contrast Medium: Contrast Amount: Contrast Method: Page 1 of 2 EXAM: CT Head Without Contrast EXAM DATE/TIME: 09/15/2018 9:00 PM CLINICAL HISTORY: 68 years old, male; Bilateral temporal partietal headache. TECHNIQUE: Imaging protocol: Axial computed tomography images of the head/brain without contrast. Coronal and sagittal reformatted images were created and reviewed. Radiation optimization: All CT scans at this facility use at least one of these dose optimization techniques: automated exposure control; mA and/or kV adjustment per patient size (includes targeted exams where dose is matched to clinical indication); or iterative reconstruction. COMPARISON: No relevant prior studies available. FINDINGS: Brain is unremarkable. No evidence of intracranial hemorrhage, mass effect, hydrocephalus, or significant extra-axial collection. Extracranial soft tissues are unremarkable. Osseous structures are intact. Visualized paranasal sinuses and mastoid air cells are clear. IMPRESSION: No acute intracranial findings. Thank you for allowing us to participate in the care of your patient. LEANDRA ERNST | Final Radiology Report CONFIDENTIALITY STATEMENT This report is intended only for use by the referring physician, and only in accordance with law. If you received this in error, call [phone]. Page 2 of 2 Dictated and Authenticated by: Nick Sandra MD 09/15/2018 9:13 PM Central Time ([place] & [place]) Departure - Departure Time of Disposition: 23:21 Disposition: Home, Self-Care 01 Condition: Good Clinical Impression: Headache Qualifiers: Headache type: unspecified Headache chronicity pattern: episodic headache Intractability: not intractable Qualified Code(s): R51 - Headache Fever Qualifiers: Fever type: unspecified Qualified Code(s): R50.9 - Fever, unspecified - Discharge Information *PRESCRIPTION DRUG MONITORING PROGRAM REVIEWED*: No Instructions: Fever, Adult Referrals: Julissa Garza PA [Primary Care Provider] - Forms: ED Department Discharge Additional Instructions: increase fluid intake alternate tylenol and ibuprofen for fever follow up if symptoms worsen"
== END 2018-09-15 23:36 | disposition home or self-care (01) ==
LOC: DL.ED 20:15
DX: R51 Headache (principal); R50.9 Fever, unspecified; E78.00 Pure hypercholesterolemia, unspecified; I10 Essential (primary) hypertension; K21.9 Gastro-esophageal reflux disease without esophagitis; Z88.5 Allergy status to narcotic agent; Z79.899 Other long term (current) drug therapy
CPT/HCPCS: 36415; 70450; 71046; 80053; 81001; 83605; 85025; 86140; 87804; 96361; 96374; 99283; 99284; A9270; G0480; J3010; J7030

== ENCOUNTER 2018-09-22 01:12 | Emergency (ER) | payer MEDICARE, BC ==
[2018-09-22] MEDS ORDERED: Ketorolac 30 MG/ML SDV IVPUSH ONE (01:30)
[2018-09-22] MEDS ORDERED: Sodium Chloride 0.9% 1,000 ML IV ONE (01:30)
--- NOTE | 2018-09-22 01:36 | EDM.PDOC ---
ED HPI GENERAL MEDICAL PROBLEM - General Chief Complaint: Back Pain or Injury Stated Complaint: PAIN [id number] Time Seen by Provider: 09/22/18 01:31 Source of Information: Reports: Patient History Limitations: Reports: No Limitations - History of Present Illness INITIAL COMMENTS - FREE TEXT/NARRATIVE: onset left back pain 3pm while sitting in couch, denies straining, also having problem urinating, feels like has to but unable. has h/o prostate cancer 2004 and was Tx with seeds. Treatments CLINICAL NUTRITION MANAGER: Reports: Acetaminophen Left Middle Back Pain Score (Numeric/FACES): 8 Left Lower Back Pain Score (Numeric/FACES): 8 - Related Data Allergies Allergy/AdvReac Type Severity Reaction Status Date / Time codeine Allergy Nausea and Verified 09/22/18 01:19 Vomiting Home Meds: Home Meds Pantoprazole Sodium [Protonix] 40 mg PO DAILY 10/15/13 [History] Gemfibrozil 1 tab PO BID 05/03/14 [History] Metoprolol Succinate 50 mg PO DAILY 08/13/15 [History] Past Medical History HEENT History: Reports: Hard of Hearing Cardiovascular History: Reports: Heart Murmur, High Cholesterol, Hypertension Gastrointestinal History: Reports: GERD Genitourinary History: Reports: Other (See Below) Other Genitourinary History: prostate ca, erectile dysfunction Musculoskeletal History: Reports: Arthritis Psychiatric History: Reports: Anxiety, Panic Attack Endocrine/Metabolic History: Reports: Obesity/BMI 30+ Oncologic (Cancer) History: Reports: Prostate Other Oncologic History: prostate - Past Surgical History GI Surgical History: Reports: Hernia Repair/Other Male Surgical History: Reports: Prostate Biopsy Social & Family History - Tobacco Use Smoking Status *Q: Unknown Ever Smoked - Caffeine Use Caffeine Use: Reports: Soda - Alcohol Use Days Per Week of Alcohol Use: 7 Number of Drinks Per Day: 4 Total Drinks Per Week: 28 - Recreational Drug Use Recreational Drug Use: No - Living Situation & Occupation Living situation: Reports: , with Family Occupation: Employed ED ROS GENERAL - Review of Systems Review Of Systems: ROS reveals no pertinent complaints other than HPI. ED EXAM,LOWER BACK PAIN/INJURY - Physical Exam Exam: See Below Exam Limited By: No Limitations General Appearance: Alert, WD/WN, Other (episodic distress with back pain) Ears: Hearing Grossly Normal Throat/Mouth: Normal Voice, No Airway Compromise Head: Atraumatic Neck: Non-Tender, Full Range of Motion Respiratory/Chest: No Respiratory Distress Cardiovascular: Regular Rate, Rhythm GI/Abdominal: Soft, Non-Tender Back Exam: CVA Tenderness (L) Neurological: Alert, Normal Mood/Affect, Normal Dorsiflexion, No Motor/Sensory Deficits, Oriented x 3 Psychiatric: Flat Affect Skin Exam: Warm, Dry, Normal Color Lymphatic: No Adenopathy Course - Vital Signs Text/Narrative:: discussed with pt who is feeling much s/p toradol Last Recorded V/S: Last Vital Signs Temp 37.1 C 09/22/18 02:44 Pulse 89 09/22/18 02:44 Resp 19 09/22/18 02:44 BP 154/89 H 09/22/18 02:44 Pulse Ox 100 09/22/18 02:44 - Orders/Labs/Meds Orders: Active Orders 24 hr Category Date Time Status Abdomen Pelvis wo Cont [CT] Urgent Exams 09/22/18 02:50 Taken Labs: Laboratory Tests 09/22/18 09/22/18 09/22/18 Range/Units 01:44 01:44 02:35 WBC 4.9 L (5.0-10.0) 10^3/uL RBC 4.61 (4.6-6.2) 10^6/uL Hgb 14.3 (14.0-18.0) g/dL Hct 41.2 (40.0-54.0) % MCV 89.4 (80-100) fL MCH 31.0 (27.0-34.0) pg MCHC 34.7 (33.0-35.0) g/dL Plt Count 200 (150-450) 10^3/uL Neut % (Auto) 71.8 (42.2-75.2) % Lymph % (Auto) 17.7 L (20.5-50.1) % [place] % (Auto) 8.7 H (2-8) % Eos % (Auto) 0.8 L (1.0-3.0) % Baso % (Auto) 1.0 (0.0-1.0) % Sodium 133 L (135-145) mmol/L Potassium 3.3 L (3.6-5.0) mmol/L Chloride 102 (101-111) mmol/L Carbon Dioxide 20.0 L (21.0-31.0) mmol/L Anion Gap 14.3 BUN 10 (7-18) mg/dL Creatinine 1.1 (0.6-1.3) mg/dL Est Cr Clr Drug Dosing 70.55 mL/min Estimated GFR (MDRD) > 60 BUN/Creatinine Ratio 9.09 Glucose 137 H (74-105) mg/dL Calcium 8.3 L (8.4-10.2) mg/dl Total Bilirubin 0.6 (0.2-1.0) mg/dL AST 28 (10-42) IU/L ALT 17 (10-60) IU/L Alkaline Phosphatase 61 (42-121) IU/L Total Protein 7.3 (6.7-8.2) g/dl Albumin 3.2 (3.2-5.5) g/dl Globulin 4.1 Albumin/Globulin Ratio 0.78 Urine Color Dark yellow (YELLOW) Urine Appearance Slightly cloudy (CLEAR) Urine pH 5.5 (5.0-9.0) Ur Specific [place] >= 1.030 (1.005-1.030) Urine Protein 30 H (NEGATIVE) Urine Glucose (UA) Negative (NEGATIVE) Urine Ketones Trace H (NEGATIVE) Urine Occult Blood Negative (NEGATIVE) Urine Nitrite Negative (NEGATIVE) Urine Bilirubin Small H (NEGATIVE) Urine Urobilinogen 4.0 H (0.2-1.0) mg/dL Ur Leukocyte Esterase Negative (NEGATIVE) Urine RBC 0-5 /HPF Urine WBC 0-5 (0-5/HPF) /HPF Ur Epithelial Cells Few /HPF Urine Bacteria Moderate H (0-FEW/HPF) /HPF Urine Mucus Many H /LPF Meds: Medications Discontinued Medications Generic Name Dose Route Start Last Admin Trade Name Freq PRN Reason Stop Dose Admin Sodium Chloride 1,000 mls @ 999 mls/hr 09/22/18 01:30 09/22/18 01:49 Normal Saline IV 09/22/18 02:30 999 mls/hr .BOLUS ONE Administration Ketorolac Tromethamine 30 mg 09/22/18 01:30 09/22/18 01:49 Toradol IVPUSH 09/22/18 01:31 30 mg ONETIME ONE Administration Departure - Departure Time of Disposition: 03:52 Disposition: Home, Self-Care 01 Condition: Good Clinical Impression: Back spasm - Discharge Information Instructions: Muscle Cramps and Spasms, [id number] Forms: ED Department Discharge Additional Instructions: 1) try heat to sore areas 2) take tylenol or motrin for pain 3) recheck as needed rx given; flexeril 10mg bid prn x 6 - My Orders Last 24 Hours: My Active Orders 09/22/18 02:50 Abdomen Pelvis wo Cont [CT] Urgent - Assessment/Plan Last 24 Hours: My Active Orders 09/22/18 02:50 Abdomen Pelvis wo Cont [CT] Urgent
[2018-09-22 02:09] LABS: ANION GAP 14.3; CHLORIDE,CL 102 mmol/L (101-111); SODIUM,NA 133 mmol/L (135-145)
[2018-09-22 04:01] VITALS: BP 143/75
== END 2018-09-22 03:57 | disposition home or self-care (01) ==
LOC: DL.ED 01:12
DX: M62.830 Muscle spasm of back (principal); E78.00 Pure hypercholesterolemia, unspecified; I10 Essential (primary) hypertension; K21.9 Gastro-esophageal reflux disease without esophagitis; Z88.5 Allergy status to narcotic agent; Z79.899 Other long term (current) drug therapy
CPT/HCPCS: 36415; 74176; 80053; 81001; 85025; 96361; 96374; 99284; J1885; J7030

== ENCOUNTER → 2018-10-30 | Outpatient (CLI) | payer MEDICARE, BC ==
[~2018-10-30] MED LIST: Barium Sulfate w/v 2.1% Oral Susp 450 ML Bottle PO ONE; Iopamidol 612 MG/ML 100 ML Bottle IVPUSH ONE
== END ==
LOC: DL.CT 07:52
PROVIDERS: ATTEND Internal Medicine Gastroenterology
DX: R10.31 Right lower quadrant pain (principal); K57.30 Diverticulosis of large intestine without perforation or abscess without bleeding; K22.8 Other specified diseases of esophagus; R93.2 Abnormal findings on diagnostic imaging of liver and biliary tract
CPT/HCPCS: 74177; Q9967

== ENCOUNTER 2021-05-15 12:19 | Emergency (ER) | payer MEDICARE, BC ==
[2021-05-15 12:35] VITALS: BP 153/88
--- NOTE | 2021-05-15 12:46 | EDM.PDOC ---
ED HPI GENERAL MEDICAL PROBLEM - General Chief Complaint: Respiratory Problem Stated Complaint: CHEST PAIN Time Seen by Provider: 05/15/21 12:42 Source of Information: Reports: Patient, Provider (ALLA Costa from [facility]), RN, RN Notes Reviewed History Limitations: Reports: No Limitations - History of Present Illness INITIAL COMMENTS - FREE TEXT/NARRATIVE: Favian is a 71 y/o male who presents to the ED at the request of his PCP from [facility] due to shortness of breath and chest pressure. The patient reports his symptoms began one week ago and have maintained in severity over that time. Additionally, he reports transient dizziness, dry cough, epigastric pain, nausea, and diarrhea. The patient was tested for COVID and Influenza A/B at the clinic, both were negative. He denies fever, shaking chills, vision changes, sore throat, chest pain, vomiting, dysuria, hematuria, melena, or hematochezia. He denies a decrease in his appetite or fluid intake. The patient attests to drinking 5-6 large beers six days a week; he denies tobacco or recreational drug use. The patient received full doses of the [employer] COVID-19 vaccine. Generalized Pain Score (Numeric/FACES): 4 - Related Data Allergies Allergy/AdvReac Type Severity Reaction Status Date / Time codeine Allergy Nausea and Verified 05/15/21 12:35 Vomiting Home Meds: Home Meds Pantoprazole Sodium [Protonix] 40 mg PO BIDAC 10/15/13 [History] Metoprolol Succinate 50 mg PO DAILY 08/13/15 [History] Albuterol [Ventolin HFA] 2 inh INH Q4HR 12/15/18 [History] Flecainide [Tambocor] 100 mg PO BID 12/15/18 [History] Past Medical History HEENT History: Reports: Hard of Hearing Cardiovascular History: Reports: Heart Murmur, High Cholesterol, Hypertension Respiratory History: Reports: None Gastrointestinal History: Reports: GERD Genitourinary History: Reports: Other (See Below) Other Genitourinary History: prostate ca, erectile dysfunction Musculoskeletal History: Reports: Arthritis Neurological History: Reports: None Psychiatric History: Reports: Anxiety, Panic Attack Endocrine/Metabolic History: Reports: Obesity/BMI 30+ Hematologic History: Reports: None Immunologic History: Reports: None Oncologic (Cancer) History: Reports: Prostate Other Oncologic History: prostate Dermatologic History: Reports: None - Infectious Disease History Infectious Disease History: Reports: Chicken Pox, Measles, Mumps - Past Surgical History Head Surgeries/Procedures: Reports: None GI Surgical History: Reports: Hernia Repair/Other Male Surgical History: Reports: Prostate Biopsy Social & Family History - Tobacco Use Tobacco Use Status *Q: Never Tobacco User Second Hand Smoke Exposure: No - Caffeine Use Caffeine Use: Reports: Soda - Recreational Drug Use Recreational Drug Use: No - Living Situation & Occupation Living situation: Reports: , with Family Occupation: Employed ED ROS GENERAL - Review of Systems Review Of Systems: Comprehensive ROS is negative, except as noted in HPI. ED EXAM, GENERAL - Physical Exam Exam: See Below Exam Limited By: No Limitations General Appearance: Alert, No Apparent Distress, Other Eye Exam: Bilateral Eye: EOMI, Normal Inspection, PERRL (3mm) Ear Exam: Right Ear: Canal Normal (Cerumen impaction), Left Ear: TM Dull (Serous fluid to TM) Nose: Normal Inspection, Normal Mucosa, No Blood Throat/Mouth: Normal Voice, No Airway Compromise. No: Normal Oropharynx (Dry mucous membranes) Head: Atraumatic, Normocephalic Neck: Normal Inspection, Supple, Non-Tender, Full Range of Motion. No: Lymphadenopathy (L), Lymphadenopathy (R) Respiratory/Chest: No Respiratory Distress, No Accessory Muscle Use, Chest Non- Tender, Rales (To right upper and mid lobes). No: Crackles, Rhonchi, Wheezing, Stridor Cardiovascular: Normal Peripheral Pulses, Regular Rate, Rhythm, No Edema, No Gallop, No JVD, No Murmur, No Rub Peripheral Pulses: 2+: Radial (L), Radial (R) GI/Abdominal: No Distention, No Abnormal Bruit, No Mass, Pelvis Stable, Tender (To midepigastric region), Abnormal Bowel Sounds (Hyperactive ) (Male) Exam: Deferred Rectal (Males) Exam: Deferred Back Exam: Normal Inspection, Full Range of Motion Extremities: Normal Inspection, Normal Range of Motion, Non-Tender, No Pedal Edema, Normal Capillary Refill Neurological: Alert, Oriented, CN II-XII Intact, Normal Cognition, Normal Gait, No Motor/Sensory Deficits Psychiatric: Normal Affect, Normal Mood Skin Exam: Warm, Dry, Intact, Normal Color, No Rash. No: Cyanosis, Jaundice, Mottled, Pallor Lymphatic: No Adenopathy #1 Interpretation EKG Date: 05/15/21 Time: 12:33 Rhythm: Other (Sinus rhythm with 1st degree AVB) Rate (Beats/Min): 70 [place]: LAD-Left [place] Deviation P-Wave: Present QRS: Normal ST-T: Normal QT: Prolonged (0.562) IN/PQ Interval: 0.239 Comparison: Change From Previous EKG (10-06-16) EKG Interpretation Comments: SR with 1st Degree AVB; LAD; Q-wave in III; No evidence of acute myocardial ischemia Course - Vital Signs Last Recorded V/S: Last Vital Signs Temp 97.6 F 05/15/21 12:27 Pulse 72 05/15/21 14:34 Resp 20 05/15/21 12:27 BP 153/88 H 05/15/21 12:27 Pulse Ox 98 05/15/21 12:27 - Orders/Labs/Meds Labs: Laboratory Tests 05/15/21 05/15/21 05/15/21 Range/Units 12:53 12:53 12:53 WBC 6.0 (5.0-10.0) 10^3/uL RBC 4.95 (4.6-6.2) 10^6/uL Hgb 15.1 (14.0-18.0) g/dL Hct 43.3 (40.0-54.0) % MCV 87.5 (80-100) fL MCH 30.5 (27.0-34.0) pg MCHC 34.9 (33.0-35.0) g/dL Plt Count 151 (150-450) 10^3/uL Neut % (Auto) 69.6 (42.2-75.2) % Lymph % (Auto) 21.2 (20.5-50.1) % Davis % (Auto) 8.8 H (2-8) % Eos % (Auto) 0.2 L (1.0-3.0) % Baso % (Auto) 0.2 (0.0-1.0) % PT 10.4 (9.0-12.0) SEC INR 1.0 (0.9-1.2) APTT 29.8 (22.0-34.0) SEC Sodium 136 (136-145) mmol/L Potassium 3.6 (3.5-5.1) mmol/L Chloride 99 (98-107) mmol/L Carbon Dioxide 22 (21-32) mmol/L Anion Gap 18.6 H (7-13) mEq/L BUN 24 H (7-18) mg/dL Creatinine 1.44 H (0.70-1.30) mg/dL Est Cr Clr Drug Dosing 51.64 mL/min Estimated GFR (MDRD) 48 BUN/Creatinine Ratio 16.7 (No establ ref range) Glucose 113 H (70-99) mg/dL Lactic Acid (0.4-2.0) mmol/L Calcium 8.6 (8.5-10.1) mg/dL Magnesium 2.5 H (1.8-2.4) mg/dL Total Bilirubin 1.1 H (0.2-1.0) mg/dL AST 27 (15-37) U/L ALT 41 (16-63) U/L Alkaline Phosphatase 67 (46-116) U/L Ammonia (11-32) umol/L Troponin I High Sens 18 (<=76) pg/mL C-Reactive Protein 3.4 H (0.0-0.9) mg/dL B-Natriuretic Peptide 22 (0-100) pg/ml Total Protein 8.0 (6.4-8.2) g/dL Albumin 3.4 (3.4-5.0) g/dL Globulin 4.6 Albumin/Globulin Ratio 0.7 Amylase 37 (25-115) U/L Lipase 143 (73-393) U/L Ethyl Alcohol < 3 (0) mg/dL 05/15/21 05/15/21 Range/Units 12:53 12:53 WBC (5.0-10.0) 10^3/uL RBC (4.6-6.2) 10^6/uL Hgb (14.0-18.0) g/dL Hct (40.0-54.0) % MCV (80-100) fL MCH (27.0-34.0) pg MCHC (33.0-35.0) g/dL Plt Count (150-450) 10^3/uL Neut % (Auto) (42.2-75.2) % Lymph % (Auto) (20.5-50.1) % Davis % (Auto) (2-8) % Eos % (Auto) (1.0-3.0) % Baso % (Auto) (0.0-1.0) % PT (9.0-12.0) SEC INR (0.9-1.2) APTT (22.0-34.0) SEC Sodium (136-145) mmol/L Potassium (3.5-5.1) mmol/L Chloride (98-107) mmol/L Carbon Dioxide (21-32) mmol/L Anion Gap (7-13) mEq/L BUN (7-18) mg/dL Creatinine (0.70-1.30) mg/dL Est Cr Clr Drug Dosing mL/min Estimated GFR (MDRD) BUN/Creatinine Ratio (No establ ref range) Glucose (70-99) mg/dL Lactic Acid 1.5 (0.4-2.0) mmol/L Calcium (8.5-10.1) mg/dL Magnesium (1.8-2.4) mg/dL Total Bilirubin (0.2-1.0) mg/dL AST (15-37) U/L ALT (16-63) U/L Alkaline Phosphatase (46-116) U/L Ammonia < 10 L (11-32) umol/L Troponin I High Sens (<=76) pg/mL C-Reactive Protein (0.0-0.9) mg/dL B-Natriuretic Peptide (0-100) pg/ml Total Protein (6.4-8.2) g/dL Albumin (3.4-5.0) g/dL Globulin Albumin/Globulin Ratio Amylase (25-115) U/L Lipase (73-393) U/L Ethyl Alcohol (0) mg/dL Meds: Medications Discontinued Medications Generic Name Dose Route Start Last Admin Trade Name Freq PRN Reason Stop Dose Admin Albuterol/Ipratropium 3 ml 05/15/21 14:18 05/15/21 14:35 Albuterol/Ipratropium 3.0-0.5 Mg/3 Ml Neb Soln NEB 05/15/21 14:19 3 ml ONETIME ONE Administration Methylprednisolone Sodium Succinate 125 mg 05/15/21 14:59 05/15/21 15:17 Methylprednisolone Sodium Succinate 125 Mg/2 Ml Sdv IVPUSH 05/15/21 15:00 125 mg ONETIME ONE Administration - Re-Assessments/Exams Free Text/Narrative Re-Assessment/Exam: 05/15/21 DuoNeb administered. CXR and EGK performed while labs pending. Patient verbalized mild improvement in shortness of breath following nebulizer. Will administer Solu-Medrol 125mg IVP. Findings of examination, lab work, and imaging reviewed with patient. Will treat acute asthma exacerbation with prednisone burst and albuterol MDI. Supportive cares discussed. Patient instructed to follow up with primary care provider in 3-5 days regarding todays visit. Red flag signs and symptoms which would warrant immediate reevaluation reviewed. Patient verbalized understanding and agreement with the plan of care. Departure - Departure Time of Disposition: 15:01 Disposition: Home, Self-Care 01 Condition: Fair Clinical Impression: Exacerbation of asthma Qualifiers: Asthma severity: mild Asthma persistence: persistent Qualified Code(s): J45.31 - Mild persistent asthma with (acute) exacerbation - Discharge Information *PRESCRIPTION DRUG MONITORING PROGRAM REVIEWED*: Not Applicable *COPY OF PRESCRIPTION DRUG MONITORING REPORT IN PATIENT ERICA: Not Applicable Instructions: Asthma, Adult Forms: ED Department Discharge Additional Instructions: Rx: albuterol MDI (#1) Rx: prednisone 20mg (#10) 1.) Start your prednisone tomorrow as you received a dose in the emergency department today. 2.) Use your albuterol inhaler in conjunction with your daily inhaler. 3.) Follow up with your primary care provider in 3-5 days regarding today's visit. 4.) You may take Imodium, per manufacturers instructions, for diarrhea. 5.) Drink small, frequent sips of water/fluids to stay hydrated. 6.) Reduce your alcohol intake. Sepsis Event Note (ED) - Evaluation Sepsis Screening Result: No Definite Risk - Focused Exam Vital Signs: Vital Signs Temp Pulse Resp BP Pulse Ox 05/15/21 14:34 72 05/15/21 12:27 97.6 F 69 20 153/88 H 98
[2021-05-15 13:22] LABS: ANION GAP 18.6 mEq/L (7-13); CHLORIDE,CL 99 mmol/L (98-107); SODIUM,NA 136 mmol/L (136-145)
[2021-05-15 13:37] LABS: PTT,PARTIAL THROMBOPLSTIN TIME 29.8 SEC (22.0-34.0)
--- NOTE | 2021-05-15 13:48 | CR ---
EXAMINATION: Chest 1V Frontal SEX: Male AGE: 71 years CLINICAL HISTORY: 71-year-old obese male with chest pain. Comparison CXR 15 September 2018. Interpretation: 1. Normal cardiac silhouette (size and configuration). Left-sided aortic arch. 2. No pulmonary vascular congestion, cephalization of flow, alveolar edema or dependent new pleural fluid accumulation. 3. No new lung mass or hilar/mediastinal lymphadenopathy (normal midline tracheal bronchial airway). 4. No suspicious lung nodules or malignant appearing mass lesion. No hilar or mediastinal lymphadenopathy. 5. No alveolar consolidation (atelectasis/infiltrate), air bronchograms, peripheral "groundglass" interstitial lung densities. 6. No pneumothorax or pneumomediastinum. No rib fractures. Note: There is subtle blunting left costophrenic sulcus (small effusion?) that does appear new since 15 September 2018 comparison chest x-ray. Clinical correlation? CONCLUSION: Subtle changes left base. (See above) Otherwise negative CXR.
[2021-05-15] MEDS ORDERED: Albuterol/Ipratropium 3.0-0.5 MG/3 ML Neb Soln NEB ONE (14:18)
[2021-05-15 14:35] VITALS: PULSE 72
[2021-05-15] MEDS ORDERED: methylPREDNISolone Sodium Succinate 125 MG/2 ML SDV IVPUSH ONE (14:59)
== END 2021-05-15 15:23 | disposition home or self-care (01) ==
LOC: DL.ED 12:19
DX: J45.31 Mild persistent asthma with (acute) exacerbation (principal); I44.0 Atrioventricular block, first degree; H61.21 Impacted cerumen, right ear; I10 Essential (primary) hypertension; K21.9 Gastro-esophageal reflux disease without esophagitis; E66.9 Obesity, unspecified; Z68.34 Body mass index [BMI] 34.0-34.9, adult; Z88.5 Allergy status to narcotic agent; Z79.899 Other long term (current) drug therapy
CPT/HCPCS: 36415; 71045; 80053; 80307; 82140; 82150; 83605; 83690; 83735; 83880; 84484; 85025; 85610; 85730; 86140; 93005; 94640; 96374; 99285; J2930; J7620-GY

== ENCOUNTER 2021-07-16 23:48 | Inpatient (IN) | payer MEDICARE, BC ==
[2021-07-17] MEDS ORDERED: Acetaminophen 325 MG Tab PO ONE (00:38)
[2021-07-17 01:00] LABS: ANION GAP 12.3 mEq/L (7-13)
[2021-07-17 01:31] LABS: CORONAVIRUS COVID-19 NAA NEGATIVE (NEGATIVE)
[2021-07-17] MEDS ORDERED: Iopamidol 755 Mg/ML 100 ML Bottle IVPUSH ONE (01:35)
[2021-07-17] MEDS ORDERED: Heparin Sodium 5,000 Units/ML Vial IVPUSH ONE ×2 (03:00→10:08)
[2021-07-17] MEDS ORDERED: Polyethylene Glycol 3350 Powder 17 GM Packet PO PRN (03:31)
[2021-07-17] MEDS ORDERED: Ondansetron 4 MG/2 ML SDV IVPUSH PRN (03:31)
[2021-07-17] MEDS ORDERED: Sodium Chloride 0.9% 10 ML Syringe FLUSH PRN (03:31)
[2021-07-17] MEDS ORDERED: Albuterol/Ipratropium 3.0-0.5 MG/3 ML Neb Soln NEB PRN (03:31)
[2021-07-17] MEDS ORDERED: Zolpidem 5 MG Tab PO PRN (03:31)
[2021-07-17] MEDS ORDERED: Acetaminophen 650 MG Supp RECTAL PRN (03:31)
[2021-07-17] MEDS ORDERED: HYDROmorphone 0.5 MG/0.5 ML Syringe IVPUSH PRN (03:31)
[2021-07-17] MEDS ORDERED: guaiFENesin/Dextromethorphan 100-10 MG/5 ML Soln 5 ML Cup PO PRN (03:37)
[2021-07-17] MEDS ORDERED: cefTRIAXone 2 GM in Sodium Chloride 0.9% 50 ML IV ONE (03:42)
[2021-07-17] MEDS ORDERED: Ibuprofen 400 MG Tab PO PRN (03:47)
[2021-07-17] MEDS ORDERED: Potassium Chloride 10 MEQ Tab.ER PO ONE (03:48)
[2021-07-17] MEDS ORDERED: Acetaminophen 325 MG Tab PO PRN (03:53)
[2021-07-17] MEDS ORDERED: Heparin Sodium/0.45% NaCl 25,000 UNITS/500 ML BAG IV SCH ×2 (04:00→05:00)
[2021-07-17] MEDS ORDERED: Azithromycin 500 MG in Sodium Chloride 0.9% 250 ML IV ONE (04:15)
[2021-07-17] MEDS: Pantoprazole 40 MG Tab.CR PO SCH (05:00)
[2021-07-17] MEDS: Acetaminophen/HYDROcodone 325-10 MG Tab PO PRN ×4 (07:52→21:47)
[2021-07-17] MEDS ORDERED: Non-Formulary Medication 1 Each (Budesonide/Formoterol Fumarate 10.2 GM Hfa.Aer.Ad) INH SCH (09:00)
[2021-07-17] MEDS: Metoprolol Succinate 50 MG Tab.ER PO SCH (10:12)
[2021-07-17] MEDS: Sodium Chloride 0.9% 10 ML Syringe FLUSH SCH ×2 (10:58→21:46)
[2021-07-17] MEDS: Formoterol/Mometasone 200-5 MCG 8.8 GM Inhaler IH SCH ×2 (11:06→21:47)
[2021-07-17] MEDS ORDERED: Haloperidol Lactate 5 MG/ML SDV IM PRN (13:13)
[2021-07-17] MEDS ORDERED: cloNIDine 0.1 MG Tab PO PRN (13:13)
[2021-07-17] MEDS ORDERED: Flumazenil 0.1 MG/ML 5 ML MDV IVPUSH PRN (13:15)
[2021-07-17] MEDS ORDERED: LORazepam 2 MG/ML SDV IV PRN ×2 (13:15→13:30)
[2021-07-17] MEDS ORDERED: Magnesium Sulfate/Water 2 GM in Premix Bag 1 BAG IV ONE (13:15)
[2021-07-17] MEDS ORDERED: LORazepam 1 MG Tab PO PRN (13:25)
[2021-07-17] MEDS ORDERED: Apixaban 5 MG Tab PO SCH (16:00)
[2021-07-17] MEDS: Apixaban 5 MG Tab PO SCH (21:46)
[2021-07-18] MEDS: Acetaminophen/HYDROcodone 325-10 MG Tab PO PRN ×2 (03:45→09:05)
[2021-07-18] MEDS: Pantoprazole 40 MG Tab.CR PO SCH (05:32)
[2021-07-18 06:55] LABS: ANION GAP 12.6 mEq/L (7-13); CHLORIDE,CL 99 mmol/L (98-107); SODIUM,NA 132 mmol/L (136-145)
[2021-07-18] MEDS: Apixaban 5 MG Tab PO SCH (08:40)
[2021-07-18] MEDS: Metoprolol Succinate 50 MG Tab.ER PO SCH (08:40)
[2021-07-18] MEDS: Formoterol/Mometasone 200-5 MCG 8.8 GM Inhaler IH SCH (08:42)
[2021-07-18] MEDS: Sodium Chloride 0.9% 10 ML Syringe FLUSH SCH (08:47)
[2021-07-18] MEDS ORDERED: cefTRIAXone 1 GM in Sodium Chloride 0.9% 50 ML IV SCH (09:00)
[2021-07-18] MEDS ORDERED: Azithromycin 500 MG in Sodium Chloride 0.9% 250 ML IV SCH (10:00)
[2021-07-18 11:38] VITALS: BP 162/87; PULSE 71
== END 2021-07-18 11:59 | disposition home or self-care (01) | DRG 175 ==
LOC: DL.ED 23:48 → DL.MS 07-17 03:09
PROVIDERS: ADMIT Internal Medicine; ATTEND Internal Medicine
DX: I26.93 Single subsegmental thrombotic pulmonary embolism without acute cor pulmonale (principal); H91.90 Unspecified hearing loss, unspecified ear; E78.00 Pure hypercholesterolemia, unspecified; J18.9 Pneumonia, unspecified organism; J90 Pleural effusion, not elsewhere classified; E87.1 Hypo-osmolality and hyponatremia; H93.90 Unspecified disorder of ear, unspecified ear; I10 Essential (primary) hypertension; C61 Malignant neoplasm of prostate; Z88.5 Allergy status to narcotic agent; E78.5 Hyperlipidemia, unspecified; K21.9 Gastro-esophageal reflux disease without esophagitis; N52.9 Male erectile dysfunction, unspecified; I49.9 Cardiac arrhythmia, unspecified; Z20.822 Contact with and (suspected) exposure to COVID-19; M19.90 Unspecified osteoarthritis, unspecified site; F41.9 Anxiety disorder, unspecified; E66.9 Obesity, unspecified; E87.6 Hypokalemia; E83.42 Hypomagnesemia; R73.9 Hyperglycemia, unspecified; Z68.34 Body mass index [BMI] 34.0-34.9, adult; Z79.01 Long term (current) use of anticoagulants; Z85.46 Personal history of malignant neoplasm of prostate; Z79.899 Other long term (current) drug therapy
CPT/HCPCS: 0240U; 36415; 71045; 71260; 80048; 80053; 83605; 83735; 84484; 85025; 85379; 85610; 85651; 85730; 86140; 87040; 93005; 93970; 94060; 99285-25; A9270-GY; J0456; J0696; J1170; J1644; J3475; J7050; Q9967

== ENCOUNTER 2022-07-19 07:13 | Emergency (ER) | payer MEDICARE, BC ==
[2022-07-19] MEDS ORDERED: Metoprolol Tartrate 5 MG/5 ML SDV IVPUSH ONE (07:30)
[2022-07-19] MEDS ORDERED: Aspirin 81 MG Tab.Chew PO ONE (07:41)
[2022-07-19] MEDS ORDERED: Sodium Chloride 0.9% 1,000 ML IV ONE (08:00)
[2022-07-19 08:06] LABS: ANION GAP 18.4 mEq/L (7-13); CHLORIDE,CL 101 mmol/L (98-107); SODIUM,NA 139 mmol/L (136-145)
[2022-07-19 08:07] LABS: PTT,PARTIAL THROMBOPLSTIN TIME 26.1 SEC (22.0-34.0)
[2022-07-19 08:08] LABS: ESTIMATED GFR 53 mL/min (>=60)
[2022-07-19 08:10] VITALS: PULSE 143
[2022-07-19] MEDS ORDERED: Heparin Sodium 5,000 Units/ML Vial IVPUSH ONE (09:16)
[2022-07-19] MEDS ORDERED: Nitroglycerin 0.4 MG Tab.SL SL ONE (09:21)
[2022-07-19 09:28] VITALS: BP 111/71
[2022-07-19] MEDS ORDERED: Heparin Sodium/0.45% NaCl 25,000 UNITS/500 ML BAG IV SCH (09:30)
== END 2022-07-19 11:09 | disposition home or self-care (01) ==
LOC: DL.ED 07:13
DX: I48.91 Unspecified atrial fibrillation (principal); E86.0 Dehydration; R07.9 Chest pain, unspecified; R73.9 Hyperglycemia, unspecified; I12.9 Hypertensive chronic kidney disease with stage 1 through stage 4 chronic kidney disease, or unspecified chronic kidney disease; N18.9 Chronic kidney disease, unspecified; H61.21 Impacted cerumen, right ear; E78.00 Pure hypercholesterolemia, unspecified; I25.2 Old myocardial infarction; K21.9 Gastro-esophageal reflux disease without esophagitis; M19.90 Unspecified osteoarthritis, unspecified site; E66.9 Obesity, unspecified; Z68.33 Body mass index [BMI] 33.0-33.9, adult; Z88.5 Allergy status to narcotic agent; Z79.899 Other long term (current) drug therapy; Z79.01 Long term (current) use of anticoagulants; Z79.82 Long term (current) use of aspirin
CPT/HCPCS: 36415; 71045; 80053; 80307; 83605; 83735; 83880; 84484; 85025; 85610; 85730; 86140; 93005; 93010; 96365; 96375; 99285; 99285-25; A9270-GY; J1644; J3490

== ENCOUNTER 2022-08-21 03:57 | Emergency (ER) | payer MEDICARE, BC ==
[2022-08-21] MEDS ORDERED: Aspirin 81 MG Tab.Chew PO ONE (04:06)
[2022-08-21 04:25] VITALS: BP 160/84; PULSE 84
[2022-08-21 04:44] LABS: ANION GAP 13.2 mEq/L (7-13); CHLORIDE,CL 102 mmol/L (98-107); SODIUM,NA 139 mmol/L (136-145)
[2022-08-21 04:45] LABS: ESTIMATED GFR 51 mL/min (>=60)
[2022-08-21] MEDS ORDERED: Ketorolac 30 MG/ML SDV IVPUSH ONE (05:44)
== END 2022-08-21 05:55 | disposition home or self-care (01) ==
LOC: DL.ED 03:57
DX: R07.89 Other chest pain (principal); I48.91 Unspecified atrial fibrillation; I10 Essential (primary) hypertension; I25.2 Old myocardial infarction; E78.00 Pure hypercholesterolemia, unspecified; K21.9 Gastro-esophageal reflux disease without esophagitis; M19.90 Unspecified osteoarthritis, unspecified site; E66.9 Obesity, unspecified; Z88.5 Allergy status to narcotic agent; Z79.82 Long term (current) use of aspirin; Z79.01 Long term (current) use of anticoagulants; Z79.899 Other long term (current) drug therapy
CPT/HCPCS: 36415; 71045; 80053; 83605; 84484; 85025; 85610; 93005; 93010; 96374; 99284; 99285-25; A9270-GY; J1885

== ENCOUNTER 2022-09-05 22:22 | Emergency (ER) | payer MEDICARE, BC ==
[2022-09-05 22:46] VITALS: BP 191/102; PULSE 71
[2022-09-05] MEDS ORDERED: Aspirin 81 MG Tab.Chew PO ONE (22:54)
[2022-09-05 23:18] LABS: ANION GAP 12.7 mEq/L (7-13)
[2022-09-05 23:55] LABS: CORONAVIRUS COVID-19 NAA NEGATIVE (NEGATIVE); RESPIRATORY SYNCYTIAL VIR NAA NEGATIVE (NEGATIVE)
[2022-09-06] MEDS ORDERED: cefTRIAXone 2 GM Vial IVPUSH ONE (00:12)
== END 2022-09-06 00:24 | disposition home or self-care (01) ==
LOC: DL.ED 22:22
DX: J40 Bronchitis, not specified as acute or chronic (principal); I48.91 Unspecified atrial fibrillation; E78.00 Pure hypercholesterolemia, unspecified; I10 Essential (primary) hypertension; I25.2 Old myocardial infarction; E66.9 Obesity, unspecified; K21.9 Gastro-esophageal reflux disease without esophagitis; M19.90 Unspecified osteoarthritis, unspecified site; Z88.5 Allergy status to narcotic agent; Z79.82 Long term (current) use of aspirin; Z79.899 Other long term (current) drug therapy; Z20.822 Contact with and (suspected) exposure to COVID-19; Z68.35 Body mass index [BMI] 35.0-35.9, adult
CPT/HCPCS: 0241U; 36415; 71045; 80053; 80307; 83605; 83880; 84484; 85025; 87040; 93005; 93010; 96374; 99284; 99285-25; A9270-GY; J0696

== ENCOUNTER 2023-01-20 09:41 | Emergency (ER) | payer MEDICARE, BC ==
[2023-01-20] MEDS ORDERED: Sodium Chloride 0.9% 10 ML Syringe FLUSH PRN (09:50)
[2023-01-20 10:04] LABS: BASOPHILS PERCENT AUTO 0.9 % (0.0-1.0); EOSINOPHILS PERCENT AUTO 3.9 % (1.0-3.0); HEMATOCRIT 44.8 % (40.0-54.0); HEMOGLOBIN 15.8 g/dL (14.0-18.0); LYMPHOCYTES PERCENT AUTO 30.3 % (20.5-50.1); MEAN CORPUSCULAR HEMOGLOBIN 31.9 pg (27.0-34.0); MEAN CORPUSCULAR HGB CONC 35.3 g/dL (33.0-35.0); MEAN CORPUSCULAR VOLUME 90.5 fL (80-100); MONOCYTES PERCENT AUTO 9.4 % (2-8); NEUTROPHILS PERCENT AUTO 55.5 % (42.2-75.2); PLATELET COUNT,PLT 191 10^3/uL (150-450); RED BLOOD CELL COUNT 4.95 10^6/uL (4.6-6.2); WHITE BLOOD CELL COUNT,WBC 5.5 10^3/uL (5.0-10.0)
[2023-01-20 10:18] VITALS: BP 150/83; PULSE 72
[2023-01-20 10:24] LABS: A/G RATIO 0.8; ALBUMIN 3.4 g/dL (3.4-5.0); ANION GAP 12.9 mEq/L (7-13); BILIRUBIN TOTAL 0.9 mg/dL (0.2-1.0); BUN/CREATININE RATIO 11.9 (No establ ref range); CALCIUM 8.9 mg/dL (8.5-10.1); CREATININE 1.34 mg/dL (0.70-1.30); EST CRCL DRUG DOSING (CG) 53.89 mL/min; POTASSIUM,K 3.9 mmol/L (3.5-5.1); PROTEIN TOTAL,TP 7.9 g/dL (6.4-8.2)
== END 2023-01-20 11:30 | disposition left against medical advice (07) ==
LOC: DL.ED 09:41
DX: R42 Dizziness and giddiness (principal); E78.00 Pure hypercholesterolemia, unspecified; I25.2 Old myocardial infarction; I10 Essential (primary) hypertension; I48.91 Unspecified atrial fibrillation; K21.9 Gastro-esophageal reflux disease without esophagitis; E66.9 Obesity, unspecified; Z68.34 Body mass index [BMI] 34.0-34.9, adult; Z88.5 Allergy status to narcotic agent; Z79.82 Long term (current) use of aspirin; Z79.01 Long term (current) use of anticoagulants; Z79.899 Other long term (current) drug therapy
CPT/HCPCS: 36415; 70450; 71045; 80053; 84484; 85025; 93005; 99284; J3490

== ENCOUNTER 2023-04-01 10:24 | Emergency (ER) | payer MEDICARE, BC ==
[2023-04-01] MEDS ORDERED: Sodium Chloride 0.9% 10 ML Syringe FLUSH PRN (10:42)
[2023-04-01] MEDS ORDERED: Ondansetron 4 MG/2 ML SDV IV ONE ×2 (10:43→13:30)
[2023-04-01] MEDS ORDERED: Sodium Chloride 0.9% 1,000 ML IV ONE (10:43)
[2023-04-01] MEDS ORDERED: Famotidine 20 MG/2 ML SDV IVPUSH ONE (10:44)
[2023-04-01 10:49] LABS: BASOPHILS PERCENT AUTO 0.6 % (0.0-1.0); EOSINOPHILS PERCENT AUTO 0.6 % (1.0-3.0); HEMATOCRIT 47.3 % (40.0-54.0); HEMOGLOBIN 16.5 g/dL (14.0-18.0); LYMPHOCYTES PERCENT AUTO 15.4 % (20.5-50.1); MEAN CORPUSCULAR HEMOGLOBIN 32.4 pg (27.0-34.0); MEAN CORPUSCULAR HGB CONC 34.9 g/dL (33.0-35.0); MEAN CORPUSCULAR VOLUME 92.7 fL (80-100); MONOCYTES PERCENT AUTO 9.4 % (2-8); PLATELET COUNT,PLT 156 10^3/uL (150-450)
[2023-04-01 11:12] LABS: LACTIC ACID 1.7 mmol/L (0.4-2.0)
[2023-04-01 11:18] LABS: A/G RATIO 0.7; ALANINE AMINOTRANSFERASE,ALT 65 U/L (16-63); ALBUMIN 3.5 g/dL (3.4-5.0); ALKALINE PHOSPHATASE 80 U/L (46-116); ANION GAP 13.6 mEq/L (7-13); ASPARTATE AMNIOTRANSFERASE,AST 55 U/L (15-37); BILIRUBIN TOTAL 1.2 mg/dL (0.2-1.0); BLOOD UREA NITROGEN,BUN 10 mg/dL (7-18); BUN/CREATININE RATIO 7.2 (No establ ref range); CARBON DIOXIDE,CO2 22 mmol/L (21-32); CHLORIDE,CL 102 mmol/L (98-107); CREATININE 1.38 mg/dL (0.70-1.30); EST CRCL DRUG DOSING (CG) 52.33 mL/min; GLUCOSE RANDOM 146 mg/dL (70-99); LIPASE 27 U/L (16-77); POTASSIUM,K 3.6 mmol/L (3.5-5.1); PROTEIN TOTAL,TP 8.7 g/dL (6.4-8.2); SODIUM,NA 134 mmol/L (136-145)
[2023-04-01 11:21] LABS: ESTIMATED GFR 54 mL/min (>=60)
[2023-04-01] MEDS ORDERED: HYDROmorphone 1 MG/ML Syringe IVPUSH ONE ×2 (11:45→13:29)
[2023-04-01] MEDS ORDERED: Iopamidol 612 MG/ML 100 ML Bottle IVPUSH ONE (11:45)
[2023-04-01 12:13] LABS: APPEARANCE,URINE CLEAR (CLEAR); BILIRUBIN,URINE NEGATIVE (NEGATIVE); COLOR,URINE YELLOW (YELLOW); GLUCOSE,URINE NEGATIVE (NEGATIVE); KETONES,URINE NEGATIVE (NEGATIVE); LEUKOCYTE ESTERASE,URINE NEGATIVE (NEGATIVE); NITRITE,URINE NEGATIVE (NEGATIVE); OCCULT BLOOD,URINE NEGATIVE (NEGATIVE); PH,URINE 7.5 (5.0-9.0); PROTEIN,URINE 30 (NEGATIVE)
[2023-04-01 12:23] LABS: BACTERIA,URINE NOT SEEN /HPF (0-FEW/HPF); EPITHELIAL CELLS,URINE RARE /HPF (NOT SEEN); MUCUS,URINE FEW /LPF (NOT SEEN); RBC,URINE NOT SEEN /HPF (0-5); WBC,URINE NOT SEEN /HPF (0-5/HPF)
[2023-04-01 12:42] VITALS: BP 166/118; PULSE 105
== END 2023-04-01 14:04 ==
LOC: DL.ED 10:24
DX: K80.20 Calculus of gallbladder without cholecystitis without obstruction (principal); N28.0 Ischemia and infarction of kidney; R19.02 Left upper quadrant abdominal swelling, mass and lump; E78.00 Pure hypercholesterolemia, unspecified; I10 Essential (primary) hypertension; K21.9 Gastro-esophageal reflux disease without esophagitis; I25.2 Old myocardial infarction; E66.9 Obesity, unspecified; Z68.30 Body mass index [BMI] 30.0-30.9, adult; Z88.5 Allergy status to narcotic agent; Z79.01 Long term (current) use of anticoagulants; Z79.82 Long term (current) use of aspirin; Z79.899 Other long term (current) drug therapy
CPT/HCPCS: 36415; 74177; 80053; 81001; 83605; 83690; 84145; 84484; 85025; 96361; 96374; 96375; 96376; 99285; 99285-25; J1170; J2405; J3490; J7030; Q9967

== ENCOUNTER 2023-05-19 11:56 | Emergency (ER) | payer MEDICARE, BC ==
[2023-05-19 12:05] VITALS: BP 139/106; PULSE 65
[2023-05-19] MEDS ORDERED: Gentamicin 0.3% Ophth Soln 5 ML Bottle EYEBOTH ONE (12:18)
[2023-05-19] MEDS ORDERED: Take Home: Cephalexin 500 MG Cap, 6 Cap Pack PO ONE (12:19)
== END 2023-05-19 12:36 | disposition home or self-care (01) ==
LOC: DL.ED 11:56
DX: H10.33 Unspecified acute conjunctivitis, bilateral (principal); I10 Essential (primary) hypertension; E78.00 Pure hypercholesterolemia, unspecified; I25.2 Old myocardial infarction; K21.9 Gastro-esophageal reflux disease without esophagitis; Z88.5 Allergy status to narcotic agent; E66.9 Obesity, unspecified; Z68.34 Body mass index [BMI] 34.0-34.9, adult; M19.90 Unspecified osteoarthritis, unspecified site; Z79.82 Long term (current) use of aspirin; Z79.01 Long term (current) use of anticoagulants; Z79.899 Other long term (current) drug therapy
CPT/HCPCS: 99283; A9270

== ENCOUNTER 2024-03-03 03:52 | Emergency (ER) | payer MEDICARE, BC ==
[2024-03-03] MEDS: Acetaminophen 325 MG Tab PO ONE (04:16)
[2024-03-03] MEDS: Sodium Chloride 0.9% 1,000 ML IV ONE (04:16)
[2024-03-03 04:24] LABS: BASOPHILS PERCENT AUTO 0.8 % (0.0-1.0); EOSINOPHILS PERCENT AUTO 0.3 % (1.0-3.0); HEMATOCRIT 47.3 % (40.0-54.0); HEMOGLOBIN 16.1 g/dL (14.0-18.0); LYMPHOCYTES PERCENT AUTO 25.7 % (20.5-50.1); MEAN CORPUSCULAR HEMOGLOBIN 30.1 pg (27.0-34.0); MEAN CORPUSCULAR VOLUME 88.4 fL (80-100); MONOCYTES PERCENT AUTO 13.4 % (2-8); NEUTROPHILS PERCENT AUTO 59.8 % (42.2-75.2); PLATELET COUNT,PLT 108 10^3/uL (150-450); RED BLOOD CELL COUNT 5.35 10^6/uL (4.6-6.2); WHITE BLOOD CELL COUNT,WBC 3.9 10^3/uL (5.0-10.0)
[2024-03-03 04:31] LABS: APPEARANCE,URINE SLIGHTLY CLOUDY (CLEAR); BILIRUBIN,URINE SMALL (NEGATIVE); COLOR,URINE YELLOW (YELLOW); GLUCOSE,URINE NEGATIVE (NEGATIVE); KETONES,URINE TRACE (NEGATIVE); LEUKOCYTE ESTERASE,URINE NEGATIVE (NEGATIVE); NITRITE,URINE NEGATIVE (NEGATIVE); OCCULT BLOOD,URINE SMALL (NEGATIVE); PROTEIN,URINE 100 (NEGATIVE)
[2024-03-03 04:32] VITALS: BP 175/99; PULSE 92
[2024-03-03 04:47] LABS: INR 1.6 (0.9-1.2); PROTHROMBIN TIME 16.1 SEC (9.0-12.0)
[2024-03-03 04:49] LABS: A/G RATIO 0.8; ALANINE AMINOTRANSFERASE,ALT 32 U/L (16-63); ALBUMIN 3.6 g/dL (3.4-5.0); ALKALINE PHOSPHATASE 68 U/L (46-116); ANION GAP 15.9 mEq/L (7-13); ASPARTATE AMNIOTRANSFERASE,AST 43 U/L (15-37); BILIRUBIN TOTAL 0.7 mg/dL (0.2-1.0); BLOOD UREA NITROGEN,BUN 12 mg/dL (7-18); BUN/CREATININE RATIO 7.5 (No establ ref range); CALCIUM 8.9 mg/dL (8.5-10.1); CARBON DIOXIDE,CO2 23 mmol/L (21-32); CHLORIDE,CL 97 mmol/L (98-107); CREATININE 1.61 mg/dL (0.70-1.30); GLUCOSE RANDOM 114 mg/dL (70-99); POTASSIUM,K 3.9 mmol/L (3.5-5.1); PROTEIN TOTAL,TP 8.4 g/dL (6.4-8.2); SODIUM,NA 132 mmol/L (136-145)
[2024-03-03 04:50] LABS: LACTIC ACID 1.6 mmol/L (0.4-2.0)
[2024-03-03 04:52] LABS: ESTIMATED GFR 45 mL/min (>=60); ETHANOL BLOOD MEDICAL < 3 mg/dL (0)
[2024-03-03 04:56] LABS: BACTERIA,URINE FEW /HPF (0-FEW/HPF); EPITHELIAL CELLS,URINE RARE /HPF (NOT SEEN); MUCUS,URINE MANY /LPF (NOT SEEN); WBC,URINE 0-5 /HPF (0-5/HPF)
[2024-03-03 04:57] LABS: HYALINE CASTS,URINE FEW
[2024-03-03] MEDS: Dexamethasone 4 MG/ML SDV IVPUSH ONE (05:36)
== END 2024-03-03 07:39 ==
LOC: DL.ED 03:52
DX: U07.1 COVID-19 (principal); E86.0 Dehydration; N17.9 Acute kidney failure, unspecified; E87.1 Hypo-osmolality and hyponatremia; I10 Essential (primary) hypertension; E78.00 Pure hypercholesterolemia, unspecified; I25.2 Old myocardial infarction; I48.91 Unspecified atrial fibrillation; K21.9 Gastro-esophageal reflux disease without esophagitis; Z88.5 Allergy status to narcotic agent; Z79.82 Long term (current) use of aspirin; Z79.01 Long term (current) use of anticoagulants; Z79.899 Other long term (current) drug therapy
CPT/HCPCS: 36415; 70450; 71045; 80053; 80307; 81001; 82947; 83605; 83735; 84484; 85025; 85610; 87804; 93005; 96361; 96374; 99285-25; A9270-GY; J1100; J7030; U0002

== ENCOUNTER 2024-05-14 20:17 | Emergency (ER) | payer MEDICARE, BC ==
[2024-05-14] MEDS ORDERED: Sodium Chloride 0.9% 10 ML Syringe FLUSH PRN (20:27)
[2024-05-14 20:47] LABS: BASOPHILS PERCENT AUTO 0.6 % (0.0-1.0); EOSINOPHILS PERCENT AUTO 1.8 % (1.0-3.0); HEMATOCRIT 43.7 % (40.0-54.0); HEMOGLOBIN 14.7 g/dL (14.0-18.0); MEAN CORPUSCULAR HEMOGLOBIN 30.3 pg (27.0-34.0); MEAN CORPUSCULAR HGB CONC 33.6 g/dL (33.0-35.0); MEAN CORPUSCULAR VOLUME 90.1 fL (80-100); MONOCYTES PERCENT AUTO 12.3 % (2-8); NEUTROPHILS PERCENT AUTO 63.3 % (42.2-75.2); PLATELET COUNT,PLT 165 10^3/uL (150-450); RED BLOOD CELL COUNT 4.85 10^6/uL (4.6-6.2); WHITE BLOOD CELL COUNT,WBC 6.2 10^3/uL (5.0-10.0)
[2024-05-14] MEDS: Ondansetron 4 MG/2 ML SDV IVPUSH ONE (21:07)
[2024-05-14] MEDS: Acetaminophen 500 MG Tab PO ONE (21:07)
[2024-05-14 21:09] LABS: ALANINE AMINOTRANSFERASE,ALT 14 U/L (16-63); ALKALINE PHOSPHATASE 70 U/L (46-116); ANION GAP 16.8 mEq/L (7-13); ASPARTATE AMNIOTRANSFERASE,AST 16 U/L (15-37); BILIRUBIN TOTAL 0.6 mg/dL (0.2-1.0); BLOOD UREA NITROGEN,BUN 7 mg/dL (7-18); BUN/CREATININE RATIO 5.8 (No establ ref range); C-REACTIVE PROTEIN 3.15 ng/dL (<=0.50); CALCIUM 8.4 mg/dL (8.5-10.1); CARBON DIOXIDE,CO2 22 mmol/L (21-32); CHLORIDE,CL 101 mmol/L (98-107); EST CRCL DRUG DOSING (CG) 59.28 mL/min; ESTIMATED GFR 63 mL/min (>=60); ETHANOL BLOOD MEDICAL 7 mg/dL (0); GLUCOSE RANDOM 91 mg/dL (70-99); MAGNESIUM 2.1 mg/dL (1.8-2.4); POTASSIUM,K 3.8 mmol/L (3.5-5.1); SODIUM,NA 136 mmol/L (136-145)
[2024-05-14 21:11] LABS: B-TYPE NATRIURETIC PEPTIDE,BNP 486 pg/ml (0-100)
[2024-05-14 21:12] LABS: INR 1.8 (0.9-1.2); LACTIC ACID 1.7 mmol/L (0.4-2.0); PROTHROMBIN TIME 17.7 SEC (9.0-12.0); PTT,PARTIAL THROMBOPLSTIN TIME 34.5 SEC (22.0-34.0)
[2024-05-14] MEDS: Furosemide 40 MG/4 ML VIAL IV ONE (21:29)
[2024-05-14] MEDS: Diltiazem 25 MG/5 ML SDV IVPUSH ONE ×2 (21:54→22:38)
[2024-05-14 22:00] LABS: APPEARANCE,URINE CLEAR (CLEAR); BILIRUBIN,URINE NEGATIVE (NEGATIVE); COLOR,URINE YELLOW (YELLOW); GLUCOSE,URINE NEGATIVE (NEGATIVE); KETONES,URINE NEGATIVE (NEGATIVE); LEUKOCYTE ESTERASE,URINE NEGATIVE (NEGATIVE); NITRITE,URINE NEGATIVE (NEGATIVE); OCCULT BLOOD,URINE NEGATIVE (NEGATIVE); PH,URINE 5.5 (5.0-9.0); PROTEIN,URINE NEGATIVE (NEGATIVE); UROBILINOGEN,URINE 0.2 mg/dL (0.2-1.0)
[2024-05-14] MEDS: Cefepime 2 GM Vial IVPUSH ONE (22:06)
[2024-05-14] MEDS: VANCOmycin 1.75 GM in Sodium Chloride 0.9% 250 ML IV ONE (22:06)
[2024-05-14] MEDS ORDERED: VANCOmycin 750 MG SDV ONE (22:15)
[2024-05-14 22:58] VITALS: BP 157/88; PULSE 99
== END 2024-05-14 22:55 ==
LOC: DL.ED 20:17
DX: A41.9 Sepsis, unspecified organism (principal); I48.91 Unspecified atrial fibrillation; R79.89 Other specified abnormal findings of blood chemistry; I25.2 Old myocardial infarction; I10 Essential (primary) hypertension; E78.00 Pure hypercholesterolemia, unspecified; K21.9 Gastro-esophageal reflux disease without esophagitis; M19.90 Unspecified osteoarthritis, unspecified site; E66.9 Obesity, unspecified; Z88.5 Allergy status to narcotic agent; Z79.51 Long term (current) use of inhaled steroids; Z79.01 Long term (current) use of anticoagulants; Z79.82 Long term (current) use of aspirin; Z79.899 Other long term (current) drug therapy; Z68.33 Body mass index [BMI] 33.0-33.9, adult
CPT/HCPCS: 36415; 71046; 80053; 80307; 81003; 83605; 83735; 83880; 84145; 84484; 85025; 85610; 85730; 86140; 87040; 87428; 93005; 93010; 96365; 96375; 96376; 99285; A9270; J0692; J1940; J2405; J3490; J7050

== ENCOUNTER 2024-06-08 01:08 | Emergency (ER) | payer MEDICARE, BC ==
[2024-06-08] MEDS ORDERED: Sodium Chloride 0.9% 10 ML Syringe FLUSH PRN (01:26)
[2024-06-08 01:39] LABS: BASOPHILS PERCENT AUTO 0.7 % (0.0-1.0); EOSINOPHILS PERCENT AUTO 1.2 % (1.0-3.0); HEMATOCRIT 44.1 % (40.0-54.0); HEMOGLOBIN 14.9 g/dL (14.0-18.0); LYMPHOCYTES PERCENT AUTO 17.2 % (20.5-50.1); MEAN CORPUSCULAR HEMOGLOBIN 30.3 pg (27.0-34.0); MEAN CORPUSCULAR HGB CONC 33.8 g/dL (33.0-35.0); MEAN CORPUSCULAR VOLUME 89.8 fL (80-100); MONOCYTES PERCENT AUTO 7.8 % (2-8); NEUTROPHILS PERCENT AUTO 73.1 % (42.2-75.2); PLATELET COUNT,PLT 135 10^3/uL (150-450); RED BLOOD CELL COUNT 4.91 10^6/uL (4.6-6.2); WHITE BLOOD CELL COUNT,WBC 5.7 10^3/uL (5.0-10.0)
[2024-06-08 02:01] LABS: ANION GAP 13.3 mEq/L (7-13); BILIRUBIN TOTAL 0.7 mg/dL (0.2-1.0); BUN/CREATININE RATIO 11.5 (No establ ref range); CALCIUM 8.4 mg/dL (8.5-10.1); CREATININE 1.3 mg/dL (0.70-1.30); EST CRCL DRUG DOSING (CG) 54.72 mL/min; MAGNESIUM 1.9 mg/dL (1.8-2.4); POTASSIUM,K 4.3 mmol/L (3.5-5.1); PROTEIN TOTAL,TP 7.5 g/dL (6.4-8.2)
[2024-06-08 02:03] LABS: A/G RATIO 0.67; INR 2.1 (0.9-1.2); PROTHROMBIN TIME 20.6 SEC (9.0-12.0); PTT,PARTIAL THROMBOPLSTIN TIME 34.1 SEC (22.0-34.0)
[2024-06-08] MEDS: Ketorolac 30 MG/ML SDV IVPUSH ONE (03:13)
[2024-06-08] MEDS: diphenhydrAMINE 50 MG/ML SDV IVPUSH ONE (03:13)
[2024-06-08] MEDS: Metoclopramide 10 MG/2 ML SDV IVPUSH ONE (03:13)
[2024-06-08 03:18] VITALS: BP 178/100; PULSE 82
== END 2024-06-08 03:40 | disposition home or self-care (01) ==
LOC: DL.ED 01:08
DX: I48.11 Longstanding persistent atrial fibrillation (principal); I25.119 Atherosclerotic heart disease of native coronary artery with unspecified angina pectoris; I10 Essential (primary) hypertension; I25.2 Old myocardial infarction; E78.00 Pure hypercholesterolemia, unspecified; F17.210 Nicotine dependence, cigarettes, uncomplicated; Z88.5 Allergy status to narcotic agent; Z79.01 Long term (current) use of anticoagulants; Z79.82 Long term (current) use of aspirin; Z88.6 Allergy status to analgesic agent; Z79.899 Other long term (current) drug therapy
CPT/HCPCS: 36415; 80053; 83735; 83880; 84484; 85025; 85610; 85730; 87428-QW; 93005; 93010; 96374; 96375; 99284; 99285-25; J1200; J1885; J2765

== ENCOUNTER 2024-10-20 20:19 | Emergency (ER) | payer MEDICARE, BC ==
[2024-10-20 21:03] LABS: BASOPHILS PERCENT AUTO 1.6 % (0.0-1.0); HEMATOCRIT 38.8 % (40.0-54.0); HEMOGLOBIN 12.9 g/dL (14.0-18.0); LYMPHOCYTES PERCENT AUTO 25.2 % (20.5-50.1); MEAN CORPUSCULAR HEMOGLOBIN 31.3 pg (27.0-34.0); MEAN CORPUSCULAR HGB CONC 33.2 g/dL (33.0-35.0); MEAN CORPUSCULAR VOLUME 94.2 fL (80-100); MONOCYTES PERCENT AUTO 13.7 % (2-8); NEUTROPHILS PERCENT AUTO 57.5 % (42.2-75.2); PLATELET COUNT,PLT 175 10^3/uL (150-450); RED BLOOD CELL COUNT 4.12 10^6/uL (4.6-6.2); WHITE BLOOD CELL COUNT,WBC 4.9 10^3/uL (5.0-10.0)
[2024-10-20 21:06] VITALS: BP 164/99; PULSE 90
[2024-10-20 21:22] LABS: INR 1.6 (0.9-1.2); PROTHROMBIN TIME 16.3 SEC (9.0-12.0); PTT,PARTIAL THROMBOPLSTIN TIME 29.9 SEC (22.0-34.0)
== END 2024-10-20 22:01 | disposition home or self-care (01) ==
LOC: DL.ED 20:19
DX: L76.22 Postprocedural hemorrhage of skin and subcutaneous tissue following other procedure (principal); I48.91 Unspecified atrial fibrillation; I25.2 Old myocardial infarction; I10 Essential (primary) hypertension; E78.00 Pure hypercholesterolemia, unspecified; K21.9 Gastro-esophageal reflux disease without esophagitis; M19.90 Unspecified osteoarthritis, unspecified site; Z86.16 Personal history of COVID-19; Z88.5 Allergy status to narcotic agent; Z79.51 Long term (current) use of inhaled steroids; Z79.01 Long term (current) use of anticoagulants; Z79.82 Long term (current) use of aspirin; Z79.899 Other long term (current) drug therapy
CPT/HCPCS: 36415; 85025; 85610; 85730; 99283

== ENCOUNTER 2025-02-02 02:11 | Emergency (ER) | payer MEDICARE, BC ==
[2025-02-02] MEDS: Iopamidol 612 MG/ML 100 ML Bottle IVPUSH ONE (02:28)
[2025-02-02] MEDS: Ondansetron 4 MG/2 ML SDV IVPUSH ONE (02:34)
[2025-02-02 02:35] LABS: BASOPHILS PERCENT AUTO 0.6 % (0.0-1.0); EOSINOPHILS PERCENT AUTO 1.1 % (1.0-3.0); LYMPHOCYTES PERCENT AUTO 20.6 % (20.5-50.1); MONOCYTES PERCENT AUTO 8.8 % (2-8); NEUTROPHILS PERCENT AUTO 68.9 % (42.2-75.2); PLATELET COUNT,PLT 170 10^3/uL (150-450); RED BLOOD CELL COUNT 4.87 10^6/uL (4.6-6.2); WHITE BLOOD CELL COUNT,WBC 7.1 10^3/uL (5.0-10.0)
[2025-02-02 02:56] LABS: ALANINE AMINOTRANSFERASE,ALT 22 U/L (16-63); ASPARTATE AMNIOTRANSFERASE,AST 30 U/L (15-37); BILIRUBIN TOTAL 0.5 mg/dL (0.2-1.0); BLOOD UREA NITROGEN,BUN 14 mg/dL (7-18); CARBON DIOXIDE,CO2 24 mmol/L (21-32); CHLORIDE,CL 101 mmol/L (98-107); CREATINE KINASE,CK 249 U/L (39-308); CREATININE 1.31 mg/dL (0.70-1.30); GLUCOSE RANDOM 113 mg/dL (70-99); POTASSIUM,K 4.2 mmol/L (3.5-5.1); PROTEIN TOTAL,TP 7.9 g/dL (6.4-8.2); SODIUM,NA 135 mmol/L (136-145)
[2025-02-02 02:57] LABS: A/G RATIO 0.65; ESTIMATED GFR 57 mL/min (>=60); LACTIC ACID 2.0 mmol/L (0.4-2.0)
[2025-02-02 02:59] LABS: INR 2.1 (0.9-1.2)
[2025-02-02 06:14] LABS: APPEARANCE,URINE CLEAR (CLEAR); GLUCOSE,URINE NEGATIVE (NEGATIVE); OCCULT BLOOD,URINE TRACE-INTACT (NEGATIVE)
[2025-02-02 06:40] LABS: EPITHELIAL CELLS,URINE RARE /HPF (NOT SEEN)
[2025-02-02 06:59] VITALS: BP 152/83; PULSE 90
== END 2025-02-02 06:57 ==
LOC: DL.ED 02:11
DX: S27.2XXA Traumatic hemopneumothorax, initial encounter (principal); I10 Essential (primary) hypertension; I25.2 Old myocardial infarction; I48.91 Unspecified atrial fibrillation; E66.9 Obesity, unspecified; K21.9 Gastro-esophageal reflux disease without esophagitis; M19.90 Unspecified osteoarthritis, unspecified site; M50.30 Other cervical disc degeneration, unspecified cervical region; M48.02 Spinal stenosis, cervical region; Z79.899 Other long term (current) drug therapy; Z79.01 Long term (current) use of anticoagulants; Z79.82 Long term (current) use of aspirin; Z88.5 Allergy status to narcotic agent; Z86.16 Personal history of COVID-19; W01.0XXA Fall on same level from slipping, tripping and stumbling without subsequent striking against object, initial encounter
CPT/HCPCS: 36415; 70450; 71260; 72125; 74177; 80053; 81001; 82550; 83605; 83690; 84484; 85025; 85610; 96361; 96374; 96375; 96376; 99284; 99285-25; J1171; J2270; J2405; J7030; Q9967

== ENCOUNTER 2025-02-08 07:16 | Emergency (ER) | payer MEDICARE, BC ==
[2025-02-08 07:55] LABS: BASOPHILS PERCENT AUTO 0.6 % (0.0-1.0); EOSINOPHILS PERCENT AUTO 2.2 % (1.0-3.0); LYMPHOCYTES PERCENT AUTO 19.4 % (20.5-50.1); MONOCYTES PERCENT AUTO 5.7 % (2-8); NEUTROPHILS PERCENT AUTO 72.1 % (42.2-75.2); PLATELET COUNT,PLT 228 10^3/uL (150-450); RED BLOOD CELL COUNT 4.21 10^6/uL (4.6-6.2); WHITE BLOOD CELL COUNT,WBC 6.5 10^3/uL (5.0-10.0)
[2025-02-08 08:14] LABS: INR 1.6 (0.9-1.2); PTT,PARTIAL THROMBOPLSTIN TIME 26.2 SEC (22.0-34.0)
[2025-02-08 08:21] LABS: A/G RATIO 0.6; ALANINE AMINOTRANSFERASE,ALT 18.0 U/L (16-63); ASPARTATE AMNIOTRANSFERASE,AST 16.0 U/L (15-37); BILIRUBIN TOTAL 0.5 mg/dL (0.2-1.0); BLOOD UREA NITROGEN,BUN 17.0 mg/dL (7-18); CARBON DIOXIDE,CO2 24.0 mmol/L (21-32); CHLORIDE,CL 102.0 mmol/L (98-107); CREATININE 1.59 mg/dL (0.70-1.30); EST CRCL DRUG DOSING (CG) 45.37 mL/min; ESTIMATED GFR 45.0 mL/min (>=60); GLUCOSE RANDOM 192.0 mg/dL (70-99); POTASSIUM,K 3.8 mmol/L (3.5-5.1); PROTEIN TOTAL,TP 6.9 g/dL (6.4-8.2); SODIUM,NA 136.0 mmol/L (136-145)
[2025-02-08] MEDS: Iopamidol 612 MG/ML 100 ML Bottle IVPUSH ONE (09:37)
[2025-02-08] MEDS: Iopamidol 755 Mg/ML 100 ML Bottle IVPUSH ONE (09:38)
[2025-02-08] MEDS: Nitroglycerin 2% Oint 1 GM UD Packet TOP ONE (10:55)
[2025-02-08] MEDS: Nitroglycerin 0.4 MG Tab.SL SL ONE (10:55)
[2025-02-08] MEDS: Sodium Chloride 0.9% 10 ML Syringe FLUSH PRN (11:23)
[2025-02-08] MEDS: Metoprolol Tartrate 5 MG/5 ML SDV IVPUSH ONE (13:00)
[2025-02-08 13:01] VITALS: BP 129/83
[2025-02-08] MEDS: Heparin Sodium/0.45% NaCl 25,000 UNITS/500 ML BAG IV SCH (13:01)
[2025-02-08] MEDS ORDERED: Heparin Sodium 5,000 Units/ML Vial IVPUSH ONE (13:07)
[2025-02-08 13:36] LABS: APPEARANCE,URINE CLEAR (CLEAR); GLUCOSE,URINE NEGATIVE (NEGATIVE); OCCULT BLOOD,URINE NEGATIVE (NEGATIVE)
[2025-02-08 13:40] VITALS: PULSE 147
[2025-02-08 13:51] LABS: EPITHELIAL CELLS,URINE NOT SEEN /HPF (NOT SEEN)
== END 2025-02-08 13:21 ==
LOC: DL.ED 07:16
DX: I21.4 Non-ST elevation (NSTEMI) myocardial infarction (principal); I20.0 Unstable angina; I10 Essential (primary) hypertension; I25.2 Old myocardial infarction; I48.91 Unspecified atrial fibrillation; E66.9 Obesity, unspecified; K21.9 Gastro-esophageal reflux disease without esophagitis; M19.90 Unspecified osteoarthritis, unspecified site; Z79.899 Other long term (current) drug therapy; Z79.82 Long term (current) use of aspirin; Z79.51 Long term (current) use of inhaled steroids; Z88.5 Allergy status to narcotic agent; Z86.16 Personal history of COVID-19; Z68.31 Body mass index [BMI] 31.0-31.9, adult
CPT/HCPCS: 36415; 71045; 71275; 74177; 80053; 81001; 83690; 84484; 85025; 85379; 85610; 85730; 93005; 93010; 96361; 96365; 96375; 96376; 99285; A9270; J1644; J2270; J3490; J7030; Q9967

== ENCOUNTER 2025-03-12 18:57 | Inpatient (IN) | payer MEDICARE, BC ==
[2025-03-12 19:38] LABS: BASOPHILS PERCENT AUTO 0.4 % (0.0-1.0); EOSINOPHILS PERCENT AUTO 0.2 % (1.0-3.0); LYMPHOCYTES PERCENT AUTO 36.0 % (20.5-50.1); MONOCYTES PERCENT AUTO 14.2 % (2-8); NEUTROPHILS PERCENT AUTO 49.2 % (42.2-75.2); PLATELET COUNT,PLT 291 10^3/uL (150-450); RED BLOOD CELL COUNT 3.61 10^6/uL (4.6-6.2); WHITE BLOOD CELL COUNT,WBC 4.9 10^3/uL (5.0-10.0)
[2025-03-12 19:51] LABS: ALANINE AMINOTRANSFERASE,ALT 32.0 U/L (16-63); ASPARTATE AMNIOTRANSFERASE,AST 41.0 U/L (15-37); BILIRUBIN TOTAL 0.4 mg/dL (0.2-1.0); BLOOD UREA NITROGEN,BUN 14.0 mg/dL (7-18); CARBON DIOXIDE,CO2 27.0 mmol/L (21-32); CHLORIDE,CL 100.0 mmol/L (98-107); CREATINE KINASE,CK 61.0 U/L (39-308); CREATININE 1.48 mg/dL (0.70-1.30); EST CRCL DRUG DOSING (CG) 47.33 mL/min; GLUCOSE RANDOM 101.0 mg/dL (70-99); POTASSIUM,K 3.4 mmol/L (3.5-5.1); PROTEIN TOTAL,TP 8.3 g/dL (6.4-8.2); SODIUM,NA 138.0 mmol/L (136-145)
[2025-03-12 19:52] LABS: A/G RATIO 0.38; ESTIMATED GFR 49.0 mL/min (>=60)
[2025-03-12] MEDS ORDERED: Ondansetron 4 MG/2 ML SDV IVPUSH PRN (22:04)
[2025-03-12] MEDS ORDERED: Acetaminophen/HYDROcodone 325-10 MG Tab PO PRN (22:04)
[2025-03-12] MEDS ORDERED: Magnesium Hydroxide 400 MG/5 ML Susp 30 ML Cup PO PRN (22:04)
[2025-03-12] MEDS ORDERED: Sodium Chloride 0.9% 10 ML Syringe FLUSH PRN (22:04)
[2025-03-12] MEDS: Potassium Chloride 10 MEQ Tab.ER PO SCH (22:07)
[2025-03-12 22:13] LABS: T4 FREE 1.09 ng/dL (0.76-1.46); TSH ULTRASENSITIVE 2.61 uIU/mL (0.36-3.74)
[2025-03-12] MEDS ORDERED: guaiFENesin/Dextromethorphan 100-10 MG/5 ML Soln 5 ML Cup PO PRN (22:30)
[2025-03-12] MEDS ORDERED: hydrALAZINE 20 MG/ML SDV IVPUSH PRN (22:31)
[2025-03-12] MEDS: Acetaminophen/HYDROcodone 325-10 MG Tab PO PRN (22:37)
[2025-03-13 06:44] LABS: BASOPHILS PERCENT AUTO 0.5 % (0.0-1.0); EOSINOPHILS PERCENT AUTO 1.3 % (1.0-3.0); LYMPHOCYTES PERCENT AUTO 30.8 % (20.5-50.1); MONOCYTES PERCENT AUTO 15.9 % (2-8); NEUTROPHILS PERCENT AUTO 51.5 % (42.2-75.2); PLATELET COUNT,PLT 239 10^3/uL (150-450); RED BLOOD CELL COUNT 3.13 10^6/uL (4.6-6.2); WHITE BLOOD CELL COUNT,WBC 3.8 10^3/uL (5.0-10.0)
[2025-03-13] MEDS: Formoterol/Mometasone 200-5 MCG 13 GM Inhaler INH SCH (06:49)
[2025-03-13 07:02] LABS: ALANINE AMINOTRANSFERASE,ALT 28.0 U/L (16-63); ASPARTATE AMNIOTRANSFERASE,AST 31.0 U/L (15-37); BILIRUBIN TOTAL 0.4 mg/dL (0.2-1.0); BLOOD UREA NITROGEN,BUN 14.0 mg/dL (7-18); CARBON DIOXIDE,CO2 28.0 mmol/L (21-32); CHLORIDE,CL 103.0 mmol/L (98-107); CREATININE 1.46 mg/dL (0.70-1.30); EST CRCL DRUG DOSING (CG) 47.98 mL/min; GLUCOSE RANDOM 104.0 mg/dL (70-99); POTASSIUM,K 3.0 mmol/L (3.5-5.1); PROTEIN TOTAL,TP 7.9 g/dL (6.4-8.2); SODIUM,NA 141.0 mmol/L (136-145)
[2025-03-13 07:03] LABS: A/G RATIO 0.39; ESTIMATED GFR 50.0 mL/min (>=60)
[2025-03-13 07:15] LABS: INR > 10.0 (0.9-1.2)
[2025-03-13] MEDS: diphenhydrAMINE 50 MG/ML SDV IVPUSH ONE (10:08)
[2025-03-13] MEDS: MVI, Adult with Vitamin K 10 ML, Folic Acid 1 MG, Thiamine 100 MG in Lactated Ringers 1... IV ONE (16:29)
[2025-03-13 17:12] LABS: APPEARANCE,URINE SLIGHTLY CLOUDY (CLEAR); GLUCOSE,URINE NEGATIVE (NEGATIVE); OCCULT BLOOD,URINE LARGE (NEGATIVE)
[2025-03-13 17:21] LABS: EPITHELIAL CELLS,URINE OCCASIONAL /HPF (NOT SEEN)
[2025-03-13] MEDS: Potassium Chloride 10 MEQ Tab.ER PO ONE (17:38)
[2025-03-13 17:46] LABS: CORONAVIRUS COVID-19 NAA NEGATIVE (NEGATIVE); INFLUENZA A NAA NEGATIVE (NEGATIVE); INFLUENZA B NAA NEGATIVE (NEGATIVE); RESPIRATORY SYNCYTIAL VIR NAA NEGATIVE (NEGATIVE)
[2025-03-14 07:14] LABS: BASOPHILS PERCENT AUTO 0.4 % (0.0-1.0); EOSINOPHILS PERCENT AUTO 0.2 % (1.0-3.0); LYMPHOCYTES PERCENT AUTO 25.5 % (20.5-50.1); MONOCYTES PERCENT AUTO 14.5 % (2-8); NEUTROPHILS PERCENT AUTO 59.4 % (42.2-75.2); PLATELET COUNT,PLT 249 10^3/uL (150-450); RED BLOOD CELL COUNT 3.09 10^6/uL (4.6-6.2); WHITE BLOOD CELL COUNT,WBC 4.9 10^3/uL (5.0-10.0)
[2025-03-14 07:28] LABS: INR 4.9 (0.9-1.2)
[2025-03-14 07:33] LABS: ALANINE AMINOTRANSFERASE,ALT 23.0 U/L (16-63); ASPARTATE AMNIOTRANSFERASE,AST 26.0 U/L (15-37); BILIRUBIN TOTAL 0.5 mg/dL (0.2-1.0); BLOOD UREA NITROGEN,BUN 9.0 mg/dL (7-18); CARBON DIOXIDE,CO2 25.0 mmol/L (21-32); CHLORIDE,CL 101.0 mmol/L (98-107); CREATININE 1.25 mg/dL (0.70-1.30); EST CRCL DRUG DOSING (CG) 56.04 mL/min; GLUCOSE RANDOM 97.0 mg/dL (70-99); POTASSIUM,K 3.1 mmol/L (3.5-5.1); PROTEIN TOTAL,TP 7.5 g/dL (6.4-8.2); SODIUM,NA 135.0 mmol/L (136-145)
[2025-03-14 07:35] LABS: A/G RATIO 0.39; ESTIMATED GFR 60.0 mL/min (>=60)
[2025-03-14] MEDS: Magnesium Sulfate 2 GM/50 mL 2 GM in Premix Bag 1 BAG IV ONE (11:53)
[2025-03-14] MEDS: Potassium Chloride 10 MEQ Tab.ER PO ONE (11:54)
[2025-03-14] MEDS: Potassium Chloride 10% 20 MEQ/15 ML Soln 15 ML UD Cup PO SCH (17:22)
[2025-03-14] MEDS: Dexamethasone 4 MG/ML SDV IVPUSH ONE (20:43)
[2025-03-14] MEDS: Multivitamins with Iron/Calcium/Folic Acid/Minerals Tab PO SCH (21:05)
[2025-03-14] MEDS: Metoprolol Tartrate 5 MG/5 ML SDV IVPUSH PRN (22:12)
[2025-03-15 06:35] LABS: BASOPHILS PERCENT AUTO 0.2 % (0.0-1.0); EOSINOPHILS PERCENT AUTO 0.0 % (1.0-3.0); LYMPHOCYTES PERCENT AUTO 15.9 % (20.5-50.1); MONOCYTES PERCENT AUTO 5.1 % (2-8); NEUTROPHILS PERCENT AUTO 78.8 % (42.2-75.2); PLATELET COUNT,PLT 231 10^3/uL (150-450); RED BLOOD CELL COUNT 3.34 10^6/uL (4.6-6.2); WHITE BLOOD CELL COUNT,WBC 4.1 10^3/uL (5.0-10.0)
[2025-03-15 06:46] LABS: INR 2.9 (0.9-1.2)
[2025-03-15 07:11] LABS: ALANINE AMINOTRANSFERASE,ALT 25.0 U/L (16-63); ASPARTATE AMNIOTRANSFERASE,AST 33.0 U/L (15-37); BILIRUBIN TOTAL 0.5 mg/dL (0.2-1.0); BLOOD UREA NITROGEN,BUN 10.0 mg/dL (7-18); CARBON DIOXIDE,CO2 22.0 mmol/L (21-32); CHLORIDE,CL 108.0 mmol/L (98-107); CREATININE 1.31 mg/dL (0.70-1.30); EST CRCL DRUG DOSING (CG) 53.48 mL/min; GLUCOSE RANDOM 160.0 mg/dL (70-99); POTASSIUM,K 5.0 mmol/L (3.5-5.1); PROTEIN TOTAL,TP 7.7 g/dL (6.4-8.2); SODIUM,NA 141.0 mmol/L (136-145)
[2025-03-15 07:14] LABS: A/G RATIO 0.35; ESTIMATED GFR 57.0 mL/min (>=60)
[2025-03-15] MEDS ORDERED: Pharmacy Consult Order SCH (08:30)
[2025-03-16 06:20] LABS: BASOPHILS PERCENT AUTO 0.2 % (0.0-1.0); EOSINOPHILS PERCENT AUTO 0.0 % (1.0-3.0); LYMPHOCYTES PERCENT AUTO 15.7 % (20.5-50.1); MONOCYTES PERCENT AUTO 8.2 % (2-8); NEUTROPHILS PERCENT AUTO 75.9 % (42.2-75.2); PLATELET COUNT,PLT 244 10^3/uL (150-450); RED BLOOD CELL COUNT 3.10 10^6/uL (4.6-6.2); WHITE BLOOD CELL COUNT,WBC 6.1 10^3/uL (5.0-10.0)
[2025-03-16 06:34] LABS: INR 3.7 (0.9-1.2)
[2025-03-16 06:38] LABS: ALANINE AMINOTRANSFERASE,ALT 30.0 U/L (16-63); ASPARTATE AMNIOTRANSFERASE,AST 30.0 U/L (15-37); BILIRUBIN TOTAL 0.2 mg/dL (0.2-1.0); BLOOD UREA NITROGEN,BUN 14.0 mg/dL (7-18); CARBON DIOXIDE,CO2 22.0 mmol/L (21-32); CHLORIDE,CL 114.0 mmol/L (98-107); CREATININE 1.13 mg/dL (0.70-1.30); EST CRCL DRUG DOSING (CG) 62.0 mL/min; GLUCOSE RANDOM 120.0 mg/dL (70-99); POTASSIUM,K 4.8 mmol/L (3.5-5.1); PROTEIN TOTAL,TP 6.9 g/dL (6.4-8.2); SODIUM,NA 145.0 mmol/L (136-145)
[2025-03-16 06:39] LABS: A/G RATIO 0.35; ESTIMATED GFR 68.0 mL/min (>=60)
[2025-03-16 18:14] VITALS: BP 118/68; PULSE 59
== END 2025-03-16 18:02 | disposition home or self-care (01) | DRG 194 ==
LOC: DL.ED 18:57 → DL.MS 21:22
PROVIDERS: ADMIT Internal Medicine; ATTEND Internal Medicine
PROC: 3E03329 Introduction of Other Anti-infective into Peripheral Vein, Percutaneous Approach (ICD-10-PCS; principal; 2025-03-12)
PROC: 3E0333Z Introduction of Anti-inflammatory into Peripheral Vein, Percutaneous Approach (ICD-10-PCS; 2025-03-14)
DX: J18.9 Pneumonia, unspecified organism (principal); J94.2 Hemothorax; N17.9 Acute kidney failure, unspecified; Z66 Do not resuscitate; H91.90 Unspecified hearing loss, unspecified ear; E78.5 Hyperlipidemia, unspecified; I10 Essential (primary) hypertension; I48.91 Unspecified atrial fibrillation; Z88.5 Allergy status to narcotic agent; K21.9 Gastro-esophageal reflux disease without esophagitis; N52.9 Male erectile dysfunction, unspecified; Z96.651 Presence of right artificial knee joint; F41.9 Anxiety disorder, unspecified; E66.9 Obesity, unspecified; M19.90 Unspecified osteoarthritis, unspecified site; E78.00 Pure hypercholesterolemia, unspecified; D50.9 Iron deficiency anemia, unspecified; E87.6 Hypokalemia; R73.9 Hyperglycemia, unspecified; E83.52 Hypercalcemia; E88.09 Other disorders of plasma-protein metabolism, not elsewhere classified; Z95.5 Presence of coronary angioplasty implant and graft; Z68.29 Body mass index [BMI] 29.0-29.9, adult; Z79.51 Long term (current) use of inhaled steroids; Z79.01 Long term (current) use of anticoagulants; Z86.16 Personal history of COVID-19; Z86.711 Personal history of pulmonary embolism; Z95.0 Presence of cardiac pacemaker; Z79.899 Other long term (current) drug therapy; Z79.891 Long term (current) use of opiate analgesic; I25.2 Old myocardial infarction; Z98.890 Other specified postprocedural states; Z85.46 Personal history of malignant neoplasm of prostate; Z91.199 Patient's noncompliance with other medical treatment and regimen due to unspecified reason
CPT/HCPCS: 71046; 80053; 82550; 84439; 84443; 84484; 85025; 85379; 86140; 87426; 93005; 93010; 96374; 99284; 99285; A9270; 36415; 71045; 80202; 81001; 82306; 83735; 85610; 87040; 87637; 94010; 94664; 94667; 97161-GP; J0456; J0696; J1100; J1200; J1808; J2543; J3373; J3374; J3375; J3411; J3475; J3490; J7030; J7040; J7050; J7120; J8540